=== PATIENT | male | born 1970 | race Caucasian/White ===

== ENCOUNTER 2018-02-27 10:08 | Inpatient (IN) ==
[2018-02-27] MEDS ORDERED: 0.9 % Sodium Chloride 1,000 ML IVC ONE (10:20)
--- NOTE | 2018-02-27 10:22 | Emergency Department Note ---
Disposition Clinical Impression: Biliary colic, Elevated bilirubin Disposition: Admitted As Inpatient Condition: Good Time of Disposition: 10:29 Abdominal Pain HPI - General Chief Complaint: ED Abdominal Pain Stated Complaint: needs admitted, gallbladder Time Seen by Provider: 02/27/18 10:12 Source: patient Mode of arrival: ambulatory Limitations: no limitations Nursing Notes Reviewed: Yes Vital Signs Reviewed: Yes - History of Present Illness HPI Narrative: 47 year old male presents to the ED with complaitns of glabladder, RUQ pain and was most recently seen at [facility] and admitted to medicine with surgery consult for possible common bile duct obstruction vs. biliary colic. He states that this pain has been going on for the past 6 weeks and it is worsening. He was originally evlauted with labs and admitted to medicine from [facility] and left [facility] because he could not afford the medical bills but then changed his mind and came to our facility for admission. He ia nontoxic appearing and non febrile, normal vital signs. HAs been experincing nausea nd vomittng when he eats, crampy shapr ache in the RUQ, no fevers Pain Scale: 5 - Related Data Home Medications Medication Instructions Recorded Confirmed Aspirin Enteric Coated [Aspirin EC] 81 mg PO DAILY 05/29/15 02/27/18 Metformin [Glucophage] 1,000 mg PO BIDWM 05/29/15 02/27/18 GlipiZIDE [Glipizide Xl] 5 mg PO DAILY 09/26/15 02/27/18 Lisinopril [Zestril] 10 mg PO DAILY 09/26/15 02/27/18 Pantoprazole Sodium [Protonix] 20 mg PO DAILY 09/26/15 02/27/18 Insulin Glargine,Hum.rec.anlog 40 unit SQ 02/27/18 02/27/18 [Lantus Solostar] Pravastatin Sodium [Pravachol] 40 mg PO HS 02/27/18 02/27/18 Allergies Allergy/AdvReac Type Severity Reaction Status Date / Time No Known Allergies Allergy Verified 02/27/18 10:12 Constitutional: Denies: fever, chills, weakness, weight change Eyes: Denies: eye pain, eye discharge, vision change ENT ED: Denies: ear pain, throat pain, dental pain, hearing loss, epistaxis, congestion, dysphagia Cardiovascular: Denies: chest pain, palpitations, dyspnea on exertion, edema, syncope Respiratory: Denies: cough, dyspnea, wheezes, hemoptysis, stridor Gastrointestinal: Reports: abdominal pain, nausea, vomiting. Denies: diarrhea, constipation, hematemesis, melena, hematochezia Genitourinary: Denies: urgency, dysuria, frequency, hematuria Musculoskeletal: Denies: back pain, neck pain, arthralgia, myalgia Integumentary: Denies: rash, abrasion, lesions Neurological: Denies: headache, weakness, numbness, paresthesias, confusion, abnormal gait, vertigo Psychiatric: Denies: anxiety, depression, suicidal thoughts, homicidal thoughts , auditory hallucinations, visual hallucinations Endocrine: Denies: fatigue Hematological/Lymphatic: Denies: easy bleeding, easy bruising Allergic/Immunologic: Denies: facial swelling, urticaria Abdominal Pain PMH - Past Medical History Medical history: Reports: diabetes, GERD, hyperlipidemia, hypertension, myocardial infarction Male Surgical History: Reports: cholecystectomy, vasectomy Psychiatric history: Reports: no psych history - Social History Smoking status: Current every day smoker Alcohol use: Reports: none Drug use: Reports: none Physical Exam - General Limitations: no limitations General appearance: alert, in no apparent distress - Head Head exam: atraumatic, normocephalic, normal inspection - Eye Eye exam: Present: normal appearance, PERRL, EOMI - Expanded Eye Exam Pupils: Bilateral: reactive - ENT ENT exam: normal exam, normal oropharynx, mucous membranes moist - Expanded ENT Exam External ear exam: Present: normal external inspection Mouth exam: Present: normal external inspection Teeth exam: Present: normal inspection Throat exam: Present: normal inspection - Neck Neck exam: Present: normal inspection, full ROM, trachea midline - Chest Chest inspection: Present: normal inspection, symmetric chest wall rise - Respiratory Respiratory exam: Present: normal lung sounds bilaterally - Cardiovascular Cardiovascular exam: Present: regular rate, normal rhythm, normal heart sounds - Abdominal Exam Abdominal exam: Present: soft, tenderness, normal bowel sounds, Pham's sign. Absent: Non-Tender, distention, guarding, rebound, rigidity Abdominal tenderness: Present: RUQ, moderate - Extremities Exam Extremities exam: Present: normal inspection, full ROM. Absent: tenderness, pedal edema - Expanded Upper Extremity Exam Shoulder exam: Present: normal inspection, full ROM Arm exam: Present: normal inspection, full ROM Elbow exam: Present: normal inspection, full ROM Forearm/Wrist exam: Present: normal inspection, full ROM Hand exam: Present: normal inspection, full ROM Vascular exam: Normal: capillary refill, radial pulse - Expanded Lower Extremity Exam Hip/Pelvis exam: Present: normal inspection, full ROM Upper leg exam: Present: normal inspection, full ROM Knee exam: Present: normal inspection, full ROM Lower leg exam: Present: normal inspection, full ROM Ankle exam: Present: normal inspection, full ROM Foot/toe exam: Present: normal inspection, full ROM Neurovascular/Tendon exam: Absent: motor deficit, sensory deficit, tendon deficit - Back Exam Back exam: Present: normal inspection, full ROM. Absent: tenderness - Neurological Exam Neurological exam: Present: alert, oriented X3 - Expanded Neurological Exam Patient oriented to: Present: person, place, time Coma Scale Eye Opening: Spontaneous Coma Scale Motor Response: Obeys Commands Coma Scale Verbal Response: Oriented Coma Scale Total: 15 - Psychiatric Psychiatric exam: Present: normal affect, normal mood - Skin Skin exam: Present: warm, dry, intact, normal color Course Course Narrative: I have discussed case wit surgery (Dr Desai) and Dr. Ryan (hpspitalist) and they have acepted patinet. Patinet has been updated we will obtain a lactic acid , GBUS in the interim peroid and have offered pain medication but he declines at this time Vital Signs Temperature 98.1 F 02/27/18 10:10 Pulse Rate 78 02/27/18 10:10 Respiratory Rate 18 02/27/18 10:10 Blood Pressure 170/93 02/27/18 10:10 O2 Sat by Pulse Oximetry 97 02/27/18 10:10 Temperature 98.1 F 02/27/18 10:10 Pulse Rate 78 02/27/18 10:10 Respiratory Rate 18 02/27/18 10:10 Blood Pressure 170/93 02/27/18 10:10 O2 Sat by Pulse Oximetry 97 02/27/18 10:10 Oxygen Delivery Oxygen Delivery Room Air
[2018-02-27] MEDS ORDERED: OXYCODONE Oral CONC 10 MG/0.5 ML ORAL.SYG SL PRN (11:47)
[2018-02-27] MEDS ORDERED: Naloxone 0.4 MG/ML INJ IVP PRN (11:47)
[2018-02-27] MEDS ORDERED: D5% in Water 1,000 ML IVC PRN (11:52)
[2018-02-27] MEDS ORDERED: Dextrose Gel 15 GM/37.5 ML TUBE PO PRN ×2 (11:52)
[2018-02-27] MEDS ORDERED: *HR* Dextrose 50 % in Water (Syg) 50 ML SYRINGE IVP PRN (11:52)
--- NOTE | 2018-02-27 12:18 | Internal Med History&Physical ---
Date of Encounter: 02/27/18 Time of Encounter: 11:00 Internal Medicine - H&P: HPI Chief complaint: abdominal pain History of present illness: Mr. Watson is a 47 year old male with PMHx of DM presented with 2 month history of RUQ pain. Sharp, intermittent, gradually worsening over the last couple of months. Worse with dairy products, no alleviating factors. Had similar episodes in 12/2017 for which he was seen in the ED and had CT done which showed cholelithiasis without cholecystitis. Denies fever/chills, jaundice, dysuria, change in bowel habits. No chest pain, SOB, cough, sputum production, joint pain , rash. He was initially seen in OSH ED then decided to leave AMA first to check his insurance status before being admitted. In the ED, he was hypertensive but otherwise afebrile and hemodynamically stable. Labs done at the OSH did show cholestatic pattern of LFT derangement with bilirubin of 1.7 ( was 3.3 in 12/2017). Lipase mildly elevated at 87. US RUQ again demonstrated cholelithiasis without cholecystitis. He is currently awaiting for HIDA scan per surgery. Past Med Surg Social Fam HX - Past Medical History Attestation: Yes The following information was validated with the patient. Medical history: diabetes, GERD, hyperlipidemia, hypertension, myocardial infarction Psychiatric history: no psych history - Past Surgical History Surgical History: no surgical history - Social History Smoking Status: Current every day smoker Smokeless Tobacco Status: No Alcohol use: none Drug use: none Internal Medicine - H&P: Meds Aspirin Enteric Coated [Aspirin EC] 81 mg PO DAILY 05/29/15 [History] GlipiZIDE [Glipizide Xl] 5 mg PO DAILY 09/26/15 [History] Lisinopril [Zestril] 10 mg PO DAILY 09/26/15 [History] Pantoprazole Sodium [Protonix] 20 mg PO DAILY 09/26/15 [History] Insulin Glargine,Hum.rec.anlog [Basaglar Kwikpen U-100] 40 units SQ HS 02/27/18 [History] Metformin HCl [Glucophage] 1,000 mg PO BIDWM 02/27/18 [History] Pravastatin Sodium [Pravachol] 40 mg PO HS 02/27/18 [History] 3 Allergy/AdvReac Type Severity Reaction Status Date / Time No Known Allergies Allergy Verified 02/27/18 10:58 All Systems PM: A 10-system review of systems was performed and is negative for pertinent findings except as documented above in the HPI. - Constitutional Vitals: Temp Pulse Resp BP Pulse Ox 98.1 F 78 18 170/93 97 02/27/18 10:25 02/27/18 10:25 02/27/18 10:25 02/27/18 10:25 02/27/18 10:25 Exam: General: Alert and oriented HEENT:EOM, pupils equal, round, and reactive. No jaundice Cardiovascular:Normal S1 & S2, no murmurs or gallops. No JVD. Pulse regular. Lungs:Normal breath sounds, no wheezes or crackles. Abdomen:Soft, mild RUQ tenderness without definitive Pham's sign Extremities:No deformity, no edema or tenderness, no joint swelling. Neurological:Normal cognition and motor skills. Skin:Normal color, no rash, no lesions. Pulses:Carotid and radial pulses normal +2. Rest of the physical exam is non-contributory - VTE Reasons for not Prescribing Prophylaxis: Treatment not Indicated - Low risk for VTE - Assessment and plan (1) Biliary colic Current Visit: Yes Status: Acute Assessment and plan: 2nd episode of RUQ pain within the last 3 months with evidence of cholelithiasis no signs of cholangitis initially concerned for choledocholithiasis with cholestatic pattern of LFT derangement -> it is in fact slightly better than 12/2017 and currently with minimal abdominal pain US did not show any evidence of cholecystitis HIDA scan pending, NPO till surgery evaluation D5 1/2NS while NPO trend LFT pain mx (2) Cholelithiasis Current Visit: Yes Status: Acute Assessment and plan: as above will probably need cholecystectomy in future Qualifiers: Cholelithiasis location: gallbladder Cholecystitis presence: without cholecystitis Biliary obstruction: with biliary obstruction Qualified Code(s ): K80.21 - Calculus of gallbladder without cholecystitis with obstruction (3) Elevated bilirubin Current Visit: Yes Status: Chronic Assessment and plan: slightly better than 12/2017, no evidence of cholangitis HIDA scan pending monitor LFT (4) Diabetes mellitus Current Visit: Yes Status: Acute Assessment and plan: on metformin, lantus 40U HS, and glipizide at home NPO for now will give levemir of 20U at night today and add low dose sliding scale Qualifiers: Diabetes mellitus type: type 2 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 Diabetes mellitus complication status: with unspecified complications Qualified Code(s): E11.8 - Type 2 diabetes mellitus with unspecified complications; Z79.4 - longterm (current) use of insulin (5) Hypertension Current Visit: Yes Status: Acute Assessment and plan: continue home meds Qualifiers: Hypertension type: essential hypertension Qualified Code(s): I10 - Essential (primary) hypertension (6) DVT prophylaxis Current Visit: Yes Status: Acute Assessment and plan: ambulatory - Time Spent With Patient Total time spent is greater than 50% in coordination of care (as documented) at patient's floor/unit and/or counseling patient:
[2018-02-27] MEDS: Insulin LISPRO 300 UNITS/3 ML VIAL SQ SCH ×2 (12:36→17:13)
--- NOTE | 2018-02-27 12:40 | General Surgery Consult Note ---
<Aparna Harris Alida - Last Filed: 02/27/18 14:06> Date of Encounter: 02/27/18 Time of Encounter: 11:45 Assessment and Plan (1) RUQ abdominal pain Current Visit: Yes Status: Acute He presented to [facility] for complaints of RUQ pain and was transferred to [place] for further work-up. WBC is unremarkable, noted increased hgb at 17.1, and most recent A1c was >12 in December 2017. Total bilirubin is 1.8, direct is 0.7, indirect is 1.1. Lipase 87. He had a RUQ ultrasound today which noted gallstones without evidence of acute cholecystitis. CT in december and US in December noted cholelithiasis. HIDA has been ordered and pending. Triglycerides only minimally elevated at unlikely the cause of his elevated lipase Will check A1c. Hepatitis screening given RUQ pain Further recommendations pending. May resume PRN discomfort management after HIDA scan complete chronic condition management per primary team We will continue to follow along with you (2) ASHD (arteriosclerotic heart disease) Current Visit: Yes Status: Chronic Management per primary team (3) T2DM (type 2 diabetes mellitus) Current Visit: Yes Status: Chronic Management per primary team Qualifiers: Diabetes mellitus jail insulin use: without jail use Diabetes mellitus complication status: with unspecified complications Qualified Code(s) : E11.8 - Type 2 diabetes mellitus with unspecified complications (4) HTN, goal below 130/80 Current Visit: Yes Status: Chronic Management per primary team History of Present Illness Consult date: 02/27/18 (Dr. Oracio Desai) Reason for consult: gallstones Requesting physician: Madeline Irvin History of present illness: Demarco is a 47-year-old male who reports a past medical history of uncontrolled type II diabetes, hypertension, ASHD, myocardial infarction, obesity, smoking history of 2 packs per day for greater than 20 years, and a surgical history of a vasectomy. He denies illicit drug or alcohol use. He presented to [facility] for complaints of RUQ pain. He reports RUQ pain for the last few months. He is unable to describe any aggravating factors other than occasionally milk will intensify the discomfort. He reports a constant dull ache that is sometime sharp. He denies radiation of the discomfort. He denies symptoms of worsening acid reflux, nausea, vomiting, constipation, diarrhea, black, courtney, or tarry stool. He presented in December 2017 for similar symptoms but states he was unable to follow through with any treatment due to lack of medical insurance coverage. He had a RUQ ultrasound today which noted gallstones without evidence of acute cholecystitis. His total bilirubin was elevated and his lipase was minimally elevated. He was transferred to [place] for further evaluation. Surgery has been asked to evaluate this patient for recommendations regarding gallstones found on CT and RUQ ultrasound. Past Med Surg Social Fam HX - Past Medical History Source: patient Medical history: diabetes (uncontrolled), GERD, hyperlipidemia, hypertension, myocardial infarction Psychiatric history: no psych history - Past Surgical History Surgical History: vasectomy - Social History Smoking Status: Current every day smoker Packs per day: 2 ppd for greateer than 20 years Smokeless Tobacco Status: No Alcohol use: none Drug use: none Occupational status: unemployed Current living situation: Home - Independent Activity Level: Independent ambulation Recent Out of Country Travel Within the Last 8 Weeks: No Exposure or Possible Exposure to Illness During Travel: No Medications and Allergies Aspirin Enteric Coated [Aspirin EC] 81 mg PO DAILY 05/29/15 [History] GlipiZIDE [Glipizide Xl] 5 mg PO DAILY 09/26/15 [History] Lisinopril [Zestril] 10 mg PO DAILY 09/26/15 [History] Pantoprazole Sodium [Protonix] 20 mg PO DAILY 09/26/15 [History] Insulin Glargine,Hum.rec.anlog [Basaglar Kwikpen U-100] 40 units SQ HS 02/27/18 [History] Metformin HCl [Glucophage] 1,000 mg PO BIDWM 02/27/18 [History] Pravastatin Sodium [Pravachol] 40 mg PO HS 02/27/18 [History] 3 Allergy/AdvReac Type Severity Reaction Status Date / Time No Known Allergies Allergy Verified 02/27/18 10:58 Review of Systems All systems PM: The remainder of the systems were reviewed and are negative General Surgery Exam Initial Vital Signs Temp Pulse Resp BP Pulse Ox 98.1 F 78 18 170/93 97 02/27/18 10:10 02/27/18 10:10 02/27/18 10:10 02/27/18 10:10 02/27/18 10:10 VITAL SIGNS: Reviewed. See [employer] GENERAL: In no apparent distress. Smells strongly of cigarette smoke HEENT: Normocephalic, atraumatic, pupils are equal and reactive, edentulous, oropharynx is pink and moist, there is no neck adenopathy or JVD noted. CHEST/RESPIRATORY: The thorax is free from signs of trauma. Lung sounds: decreased breath sounds, expiratory wheezing CARDIAC: Regular rate and rhythm. Normal S1 and S2, without murmurs, gallops, or rubs. VASCULAR: No Edema. 2+ peripheral pulses. ABDOMEN: soft, nontender, active bowel sounds MUSCULOSKELETAL: Good range of motion of all major joints. Extremities without clubbing, cyanosis or edema. NEUROLOGIC EXAM: Alert and oriented x 3. Speech normal. Follows commands. PSYCHIATRIC: Mood normal. SKIN: No rash or lesions. Exam Initial Vital Signs Temp Pulse Resp BP Pulse Ox 98.1 F 78 18 170/93 97 02/27/18 10:10 02/27/18 10:10 02/27/18 10:10 02/27/18 10:10 02/27/18 10:10 Results - Labs All other labs normal. - Imaging US - abdomen: report reviewed Consult Discharge Plan - Plan Referrals: Brittany Roberts, TAMPER OPERATOR [Primary Care Provider] - <Oracio Desai - Last Filed: 02/27/18 17:04> Date of Encounter: 02/27/18 Review of Systems All systems PM: The remainder of the systems were reviewed and are negative General Surgery Exam Initial Vital Signs Temp Pulse Resp BP Pulse Ox 98.1 F 78 18 170/93 97 02/27/18 10:10 02/27/18 10:10 02/27/18 10:10 02/27/18 10:10 02/27/18 10:10 Exam Initial Vital Signs Temp Pulse Resp BP Pulse Ox 98.1 F 78 18 170/93 97 02/27/18 10:10 02/27/18 10:10 02/27/18 10:10 02/27/18 10:10 02/27/18 10:10 Results - Labs Abnormal lab results Hemoglobin A1c 9.6 % (-5.6) H 02/27/18 12:12 Total Bilirubin 1.8 mg/dL (0.3-1.0) H 02/27/18 12:12 Direct Bilirubin 0.7 mg/dL (0.0-0.2) H 02/27/18 12:12 Triglycerides 157 mg/dL (< 150) H 02/27/18 12:12 Diabetes panel 02/27/18 02/27/18 Range/Units 12:12 12:12 Hemoglobin A1c 9.6 H ( - 5.6) % Triglycerides 157 H (< 150) mg/dL Adrenal panel 02/27/18 Range/Units 12:12 Total Bilirubin 1.8 H (0.3-1.0) mg/dL All other labs normal. - Attending Attestation I have personally performed a face to face evaluation on this patient. I have reviewed and agree with the care plan. History and Exam by me shows: Review the above assessment and evaluation and agree with the above plan. Patient is been having a several month history of right upper quadrant abdominal pain. Initially his symptoms also radiated to the right lower back. His pain had been intermittent in nature occurring on average once a week. The symptoms last for 3 hours and was sharp in nature. He previously was seen in the emergency room with a bilirubin level of 3.4. During this episode he had a 3 day history of persistent right upper quadrant pain radiating between the shoulder blades and to the right lower back. The pain was constant and sharp in nature. He was seen in the [facility] lab studies show elevated bilirubin of 1.7 and a mildly elevated lipase consistent with gallstone pancreatitis. He did of note had an ultrasound showing gallstones and a previous CAT scan in December of this year showing gallstones as well. HIDA scan showed no evidence of biliary obstruction. Given the laboratory studies and history I do think it is probable that his symptoms are due to gallstone pancreatitis and I think it would be appropriate to proceed with a laparoscopic cholecystectomy with cholangiogram. The case is been added on for tomorrow and the patient is aware of the risk and benefits of the procedure.
[2018-02-27 13:35] LABS: Hepatitis B Surface Antigen Nonreactive (Nonreactive)
[2018-02-27 13:53] LABS: Bilirubin,Direct 0.7 mg/dL (0.0-0.2); Bilirubin,Indirect 1.1 mg/dL (0.0-1.2); Bilirubin,Total 1.8 mg/dL (0.3-1.0)
[2018-02-27 14:18] LABS: Estimated Average Glucose 229 mg/dl; Hemoglobin A1C 9.6 %
[2018-02-27] MEDS: D5% in 0.45% NACL 1,000 ML IVC SCH (15:38)
[2018-02-27] MEDS ORDERED: Insulin DETEMIR 100 UNIT/ML X5UNITS SQ SCH (21:00)
[2018-02-27] MEDS: Ketorolac 15 MG/ML VIAL IVP PRN (21:37)
[2018-02-28] MEDS: Insulin LISPRO 300 UNITS/3 ML VIAL SQ SCH ×3 (00:39→19:19)
[2018-02-28 01:21] LABS: Hepatitis A Antibody IgM Nonreactive (Nonreactive); Hepatitis B Core IgM Nonreactive (Nonreactive); Hepatitis C Virus Antibody Nonreactive (Nonreactive)
[2018-02-28] MEDS: D5% in 0.45% NACL 1,000 ML IVC SCH (06:00)
[2018-02-28 06:27] LABS: Basophils # 0.1 K/mcL (0.0-0.2); Basophils % 0.9 %; Eosinophils # 0.2 K/mcL (0.0-0.6); Eosinophils % 1.9 %; Hematocrit 45.3 % (37.5-50.1); Hemoglobin 15.5 g/dL (12.9-16.9); Immature Granulocytes % 0.3 % (0-4); Lymphocytes # 2.2 K/mcL (0.6-4.6); Lymphocytes % 28.1 %; Mean Corpuscular HGB Conc 34.2 g/dL (31.6-35.5); Mean Corpuscular Hemoglobin 30.6 pg (28.0-33.3); Mean Corpuscular Volume 89.3 fL (83.0-100.0); Mean Platelet Volume 10.7 fL (9.4-12.4); Monocytes # 0.7 K/mcL (0.0-1.3); Monocytes % 8.6 %; Neutrophils # 4.7 K/mcL (1.6-8.9); Platelet Count 253 K/mcL (140-400); Red Blood Count 5.07 M/mcL (4.19-5.50); Red Cell Distribution Width 13.2 % (11.5-14.5); Segmented Neutrophils % 60.2 %
[2018-02-28 06:46] LABS: Alanine Aminotransferase 46 Units/L (7-52); Albumin 3.9 g/dL (3.5-5.7); Albumin/Globulin Ratio 1.4 (1.1-2.2); Alkaline Phosphatase 188 Units/L (34-104); Aspartate Amino Transferase 22 Units/L (13-39); BUN/Creatinine Ratio 13 (6-26); Bilirubin,Total 1.9 mg/dL (0.3-1.0); Blood Urea Nitrogen 7 mg/dL (6-20); Calcium 9.4 mg/dL (8.6-10.3); Carbon Dioxide 25 mEq/L (23-29); Chloride 105 mEq/L (98-107); Chol/HDL Ratio 6.9 (0-4.9); Cholesterol 172 mg/dL (< 200); Globulin 2.7 g/dL (2.4-3.5); Glucose 169 mg/dL (70-105); HDL Cholesterol 25 mg/dL (40-59); LDL Cholesterol,Calculated 114 mg/dL (0-99); Osmolality,Calculated 284 (280-300); Potassium 3.5 mEq/L (3.5-5.1); Sodium 136 mEq/L (136-145); Total Protein 6.6 g/dL (6.4-8.9); Triglycerides 163 mg/dL (< 150); eGFR For Non-African Americans > 60 (> 60)
[2018-02-28] MEDS: Ketorolac 15 MG/ML VIAL IVP PRN (08:53)
[2018-02-28] MEDS ORDERED: Nicotine 21 MG PATCH.TD24 TD SCH (09:00)
[2018-02-28] MEDS ORDERED: Aspirin Enteric Coated 81 MG Tablet PO SCH (09:00)
[2018-02-28] MEDS ORDERED: Albuterol 2.5 MG/3 ML NEBULIZER IH ONE (12:15)
[2018-02-28] MEDS ORDERED: Acetaminophen IV 1,000 MG/100 ML INFUS..BTL IVPB ONE (12:16)
[2018-02-28] MEDS ORDERED: Famotidine 20 MG/2 ML VIAL IVP ONE (12:16)
--- NOTE | 2018-02-28 12:20 | Anesthesia Evaluation PreOp ---
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 Other Medical History: Diabetes Type II Anesthesia History: No Prior Anesthetic Complications Alcohol Use: none Drug use: none Medications and Allergies Aspirin Enteric Coated [Aspirin EC] 81 mg PO DAILY 05/29/15 [History] GlipiZIDE [Glipizide Xl] 5 mg PO DAILY 09/26/15 [History] Lisinopril [Zestril] 10 mg PO DAILY 09/26/15 [History] Pantoprazole Sodium [Protonix] 20 mg PO DAILY 09/26/15 [History] Insulin Glargine,Hum.rec.anlog [Basaglar Kwikpen U-100] 40 units SQ HS 02/27/18 [History] Metformin HCl [Glucophage] 1,000 mg PO BIDWM 02/27/18 [History] Pravastatin Sodium [Pravachol] 40 mg PO HS 02/27/18 [History] 3 Allergy/AdvReac Type Severity Reaction Status Date / Time No Known Allergies Allergy Verified 02/27/18 10:58 - Meds/Allergy Pre-op Review Medications Reviewed: Yes Allergies Reviewed: Yes Beta Blockers on Current Med List: No Anesthesia Results - Labs 02/28/18 05:31 02/28/18 05:31 - Imaging EKG: report reviewed (Sinus Rhytmn) Anesthesia Exam O2 Sat Weight 107.4 kg O2 Sat by Pulse Oximetry 97 O2 Sat by Pulse Oximetry 97 O2 Sat by Pulse Oximetry 96 O2 Sat by Pulse Oximetry 97 O2 Sat by Pulse Oximetry 97 Vital Signs Temp Pulse Resp BP Pulse Ox 98.1 F 78 18 170/93 97 02/27/18 10:10 02/27/18 10:10 02/27/18 10:10 02/27/18 10:10 02/27/18 10:10 Height: 6'0 Weight: 236 lbs NPO (# of Hours): MN Pain Scale: 0 - HEENT Pupil (Motor): Pupils equal, EOMI Mallampati: III Teeth: Edentulous Oral Opening: Less than or equal to 3 - CLOUD OPERATIONS ENGINEER LOC: Oriented CLOUD OPERATIONS ENGINEER Motor: Normal RUE, Normal LUE, Normal RLE, Normal LLE, Normal Face CLOUD OPERATIONS ENGINEER Sensory: Normal: RUE, LUE, RLE, LLE, Face - Cardiac Rhythm: Regular Murmur: None JVD: No Carotid Bruit: No - Pulmonary Breath Sounds: bilateral Clear Respiratory Effort: Symmetrical Anesthesia Assess/Plan ASA Score: 3 (HTN DM Tobacco) Modified Aurora Scale for Level of Consciousness: Cooperative, oriented, and tranquil Anesthetic Plan: General Monitoring Plan: Standard Monitors Recovery Plan: PACU (Discussed GA, agrees to proceed)
[2018-02-28] MEDS ORDERED: Isovue-300 50 ML VIAL IVP ONE (12:33)
[2018-02-28] MEDS ORDERED: Bupivacaine/EPI 1:200k 0.5%PF 30 ML VIAL ONE (12:33)
[2018-02-28] MEDS ORDERED: *HR* FentaNYL (PF) 100 MCG/2 ML VIAL ONE ×3 (13:04→13:24)
[2018-02-28] MEDS ORDERED: Dexamethasone 4 MG/ML VIAL ONE ×2 (13:04→13:24)
[2018-02-28] MEDS ORDERED: Ondansetron 4 MG/2 ML VIAL ONE ×2 (13:04→13:24)
[2018-02-28] MEDS ORDERED: CefOXitin 2,000 MG VIAL ONE (13:04)
[2018-02-28] MEDS ORDERED: Lidocaine -MPF 4% 5 ML AMPUL ONE ×2 (13:04→13:24)
[2018-02-28] MEDS ORDERED: *HR* Midazolam HCl 2 MG/2 ML VIAL ONE ×2 (13:04→13:24)
[2018-02-28] MEDS ORDERED: Lidocaine -MPF 2% 2 ML VIAL ONE ×2 (13:04→13:24)
[2018-02-28] MEDS ORDERED: *HR* Propofol 200 MG/20 ML VIAL IVP ONE ×2 (13:04→13:24)
[2018-02-28] MEDS ORDERED: *HR* Promethazine 25 MG/ML VIAL IVP PRN (13:09)
[2018-02-28] MEDS ORDERED: *HR* OxyCODONE Immed Rel 5 MG TABLET PO PRN (13:09)
[2018-02-28] MEDS ORDERED: Ondansetron 4 MG/2 ML VIAL IVP ONE (13:09)
[2018-02-28] MEDS ORDERED: MORPHINE SUL Oral CONC 10 MG/0.5 ML ORAL.SYG SL PRN ×2 (13:09→14:38)
[2018-02-28] MEDS ORDERED: *HR* Labetalol 20 MG/4 ML SYRINGE IVP PRN (13:09)
[2018-02-28] MEDS ORDERED: *HR* FentaNYL (PF) 100 MCG/2 ML VIAL IVP PRN (13:09)
[2018-02-28] MEDS ORDERED: *HR* Labetalol 100 MG/20 ML MDV ONE (13:13)
[2018-02-28] MEDS ORDERED: *HR* Succinylcholine 200 MG/10 ML VIAL IVP ONE (13:24)
[2018-02-28] MEDS ORDERED: *HR* Rocuronium Bromide 50 MG/5 ML VIAL ONE (13:24)
[2018-02-28] MEDS ORDERED: Neostigmine Methylsulfate 3 MG/3 ML SYRINGE ONE (13:33)
--- NOTE | 2018-02-28 13:50 | Operative Note ---
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 After proper IV sedation was achieved followed by general endotracheal intubation, the patient's abdomen was prepped and draped in a normal sterile fashion. A timeout was performed noting the patient's name and type of procedure to be performed. Half percent Marcaine was used to infiltrate the epidermal and dermal layers just above the umbilicus. An 11 blade scalpel was then used to make an incision in this area down to the rectus fascia which was also incised. Once the abdomen was entered a 12 mm port was placed through the incision and the abdomen was insufflated with carbon dioxide. A laparoscopic camera was placed through the port which showed no injury to the intra-abdominal organs upon entry. A subxiphoid 5 mm port and a right subcostal margin 5 mm port were then placed under direct camera visualization. The patient was placed in a reverse Trendelenburg position and the gallbladder was identified and retracted superiorly. Dense omentum adhesions were noted to the dome and infundibulum which were dissected with a combination of Bovie cauterization and blunt dissection. The lymphatic tissue around the infundibulum and the location of the presumed cystic duct were enlarged consistent with inflammation. The surrounding peritoneal cover an inflamed lymphatics were dissected around the cystic duct with blunt dissection and Bovie cauterization. Once the cystic duct was further isolated the grasper was exchanged for a Moraes clamp which was used to retract the infundibulum. Laparoscopic scissors were then used to incise the cystic duct just proximal to the clip with immediate expulsion of debris and bilious fluid. A cholangiogram catheter was introduced through the side-port of the grasper and placed through this opening. It was secured with a laparoscopic clip and an intraoperative cholangiogram was then performed. There was filling of the hepatic duct with retrograde filling of the right left hepatic radicles. There was some dilation of the common bile duct distally with debris and a filling defect identified without flow into the small bowel. Multiple attempts at identifying whether or not there was flow try repositioning but no flow was evident with what appeared to be a gall stone in the distal duct. The decision was made to conclude the surgical procedure by formally removing the cholangiogram catheter, clipping the cystic duct with laparoscopic clips and incising it with laparoscopic scissors. The cystic artery was isolated, clipped, and incised laparoscopic scissors. The gallbladder was then carefully dissected away from the gallbladder fossa with Bovie cauterization while Bovie cauterization was used to maintain hemostasis. Once the gallbladder was detached was removed from the abdomen via an Endobag. Reinspection of the right upper quadrant demonstrated some mild oozing along the gallbladder fossa which was hemostatically controlled with Bovie cauterization. The right upper quadrant was copiously irrigated with normal saline solution and reinspection demonstrated proper location of the clips along the cystic duct and cystic artery. All ports are then removed from the abdomen after the abdomen was desufflated. The rectus fascia for the supraumbilical incision was reapproximated with a [id number] 0 Vicryl suture. Subcutaneous tissue was reapproximated with 3- 0 Vicryl sutures and the epidermal and dermal layers for the remaining incisions were closed with 4-0 Monocryl sutures. Needle, sponge, and instrument counts were correct 2 and the incisions were covered with Steri- Strips and Band-Aids. The patient was aroused from IV sedation, extubated in the operating room without complication, and transported to the recovery room in stable condition.
--- NOTE | 2018-02-28 13:51 | Event Note ---
Date of Encounter: 02/28/18 Time of Encounter: 13:50 Laparoscopic cholecystectomy with cholangiogram completed. Noted distal common bile duct dilation with stone and debris in the distal common bile duct with no flow of contrast into the small bowel. The cholecystectomy was completed and GI has been consulted for evaluation for possible ERCP.
--- NOTE | 2018-02-28 14:21 | Anesthesia Evaluation Post Op ---
Date of Encounter: 02/28/18 Time of Encounter: 14:25 - Vital Signs Vital Signs: Vital Signs/O2 Sat/Glucose, Most Current Temp Pulse Resp BP Pulse Ox 02/28/18 14:14 72 14 140/64 97 02/28/18 14:04 75 15 149/82 96 02/28/18 13:54 97.6 F 74 12 96/76 98 - Lungs Lungs: Clear Ascult./Percussion - Airway Airway: Non-obstructed - Cardiovascular Regular Rate - Mental Status Mental Status: Alert & Oriented, Answers Appropriately - Pain Pain Scale: 0 - Nausea Vomiting Nausea Vomiting: Not Present - Hydration Hydration: Ice chips - Discharge PostOp Status: Transfer Patient to floor
[2018-02-28] MEDS ORDERED: *HR* Dextrose 50 % in Water (Syg) 50 ML SYRINGE IVP PRN (14:38)
[2018-02-28] MEDS ORDERED: *HR* OxyCODONE/APAP 7.5/325 TABLET PO PRN (14:38)
[2018-02-28] MEDS ORDERED: Naloxone 0.4 MG/ML INJ IVP PRN (14:38)
[2018-02-28] MEDS ORDERED: D5% in Water 1,000 ML IVC PRN (14:38)
[2018-02-28] MEDS ORDERED: Dextrose Gel 15 GM/37.5 ML TUBE PO PRN ×2 (14:38)
[2018-02-28] MEDS ORDERED: Ketorolac 15 MG/ML VIAL IVP PRN (14:38)
[2018-02-28] MEDS: 0.9 % Sodium Chloride 1,000 ML IVC SCH (15:00)
--- NOTE | 2018-02-28 17:51 | Internal Med Progress Note ---
Date of Encounter: 02/28/18 Time of Encounter: 17:48 - Assessment and plan (1) Cholelithiasis Current Visit: Yes Status: Inactive Assessment and plan: Patient underwent successful cholecystectomy. However there was found to be common bile duct dilation with stone and debris and GI consultation for evaluation of possible ERCP; patient will remain nothing by mouth -Appreciate surgery recommendations and care Qualifiers: Cholelithiasis location: gallbladder Cholecystitis presence: without cholecystitis Biliary obstruction: with biliary obstruction Qualified Code(s ): K80.21 - Calculus of gallbladder without cholecystitis with obstruction (2) Biliary colic Current Visit: Yes Status: Acute Assessment and plan: Status Post cholecystectomy postoperative day #0 -Analgesia GI evaluation for choledocholithiasis pending (3) Elevated bilirubin Current Visit: Yes Status: Chronic Assessment and plan: Chronic, bilirubin stable monitor LFT (4) Diabetes mellitus Current Visit: Yes Status: Acute Assessment and plan: on metformin, lantus 40U HS, and glipizide at home NPO for now and will remain nothing by mouth Continue Lantus and sliding scale and monitor Accu-Cheks Qualifiers: Diabetes mellitus type: type 2 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: with watermelon harvesting supervisor use Diabetes mellitus complication status: with unspecified complications Qualified Code(s): E11.8 - Type 2 diabetes mellitus with unspecified complications; Z79.4 - watermelon inspector (current) use of insulin (5) Hypertension Current Visit: Yes Status: Acute Assessment and plan: Continue home meds and monitor blood pressure Qualifiers: Hypertension type: essential hypertension Qualified Code(s): I10 - Essential (primary) hypertension (6) DVT prophylaxis Current Visit: Yes Status: Acute Assessment and plan: Subcutaneous heparin - Time Spent With Patient Total time spent is greater than 50% in coordination of care (as documented) at patient's floor/unit and/or counseling patient: 25 - 35 minutes - Subjective Interval history: Patient seen and evaluated at bedside postsurgery. Patient has no complaints currently. Patient underwent laparoscopic cholecystectomy with cholangiogram and was found to have a common bile duct dilation with stone and debris; therefore general surgery was consulted for possible ERCP evaluation. Patient denies any chest pain shortness of breath, nausea, vomiting, diarrhea, admits to some mild tenderness at incision sites. - Constitutional Vitals: Temp Pulse Resp BP Pulse Ox 98.5 F 79 17 161/85 92 02/28/18 14:30 07/25/18 14:30 02/28/18 14:30 02/28/18 14:30 02/28/18 14:30 Exam: Constitutional: No acute distress, Alert Psych: AAO x 3 HEENT: NCAT, EOMI Neck: supple, no JVD Cardio: regular rate and rhythm, +s1s2, no murmurs/rubs/ronchi, no lower extremity edema, no JVD Resp: clear to ascultation bilaterally, no wheezes/rales/ronchi Abd: soft, no gaurding/reboud/ridgitity, mild tenderness to palpation at incision sites, incision sites clean dry and intact Extremities: no clubbing/cyanosis/edema appreciated Neuro: no focal deficits appreciated Lymph: no cervical/supraclavicular adenopahty apprecitated Internal Medicine: Result - Labs CBC & Chem 7: 02/28/18 05:31 02/28/18 05:31 Labs: Short CBC 02/28/18 Range/Units 05:31 WBC 7.8 (4.3-11.1) K/mcL Hgb 15.5 D (12.9-16.9) g/dL Hct 45.3 (37.5-50.1) % Plt Count 253 (140-400) K/mcL Neutrophils # 4.7 (1.6-8.9) K/mcL BMP 02/28/18 05:31 Sodium 136 Potassium 3.5 Chloride 105 Carbon Dioxide 25 BUN 7 Creatinine 0.54 L Glucose 169 H Calcium 9.4 Liver Function 02/28/18 Range/Units 05:31 Total Bilirubin 1.9 H (0.3-1.0) mg/dL AST 22 (13-39) Units/L ALT 46 (7-52) Units/L Alkaline Phosphatase 188 H (34-104) Units/L Albumin 3.9 (3.5-5.7) g/dL - Impressions Impressions Cholangiogram,Operative 02/28/18 00:00 IMPRESSION: Filling defect within the distal common bile duct with mild dilation suspicious for choledocholithiasis. No contrast noted within the duodenum. Please refer to dedicated operative note for full details. D/ / 02/28/2018 14:14:10 Clara Platt MD / eladia Interpreting Provider: Clara Platt MD - VTE Reasons for not Prescribing Prophylaxis: Treatment not Indicated - Low risk for VTE Consult Discharge Plan - Plan Referrals: Brittany Roberts CNP [Primary Care Provider] - Aparna Harris CNP [Advanced Practice Nurse] - 03/16/18 10:30 am
[2018-02-28] MEDS ORDERED: Insulin DETEMIR 100 UNIT/ML X5UNITS SQ SCH (21:00)
[2018-03-01] MEDS: Insulin LISPRO 300 UNITS/3 ML VIAL SQ SCH ×2 (00:15→05:31)
[2018-03-01] MEDS: 0.9 % Sodium Chloride 1,000 ML IVC SCH (00:28)
[2018-03-01 07:24] LABS: Basophils # 0.1 K/mcL (0.0-0.2); Basophils % 0.5 %; Eosinophils % 0.3 %; Hematocrit 46.2 % (37.5-50.1); Hemoglobin 16.2 g/dL (12.9-16.9); Immature Granulocytes % 0.4 % (0-4); Lymphocytes # 1.3 K/mcL (0.6-4.6); Lymphocytes % 13.4 %; Mean Corpuscular HGB Conc 35.1 g/dL (31.6-35.5); Mean Corpuscular Hemoglobin 30.7 pg (28.0-33.3); Mean Corpuscular Volume 87.5 fL (83.0-100.0); Mean Platelet Volume 10.6 fL (9.4-12.4); Monocytes # 0.9 K/mcL (0.0-1.3); Monocytes % 9.9 %; Neutrophils # 7.1 K/mcL (1.6-8.9); Platelet Count 243 K/mcL (140-400); Red Blood Count 5.28 M/mcL (4.19-5.50); Red Cell Distribution Width 13.2 % (11.5-14.5); Segmented Neutrophils % 75.5 %
[2018-03-01 07:34] LABS: Alanine Aminotransferase 172 Units/L (7-52); Albumin 4.1 g/dL (3.5-5.7); Albumin/Globulin Ratio 1.5 (1.1-2.2); Alkaline Phosphatase 446 Units/L (34-104); Aspartate Amino Transferase 153 Units/L (13-39); BUN/Creatinine Ratio 10 (6-26); Bilirubin,Direct 3.9 mg/dL (0.0-0.2); Bilirubin,Indirect 2.6 mg/dL (0.0-1.2); Bilirubin,Total 6.5 mg/dL (0.3-1.0); Blood Urea Nitrogen 6 mg/dL (6-20); Calcium 9.6 mg/dL (8.6-10.3); Carbon Dioxide 23 mEq/L (23-29); Chloride 102 mEq/L (98-107); Globulin 2.7 g/dL (2.4-3.5); Glucose 181 mg/dL (70-105); Osmolality,Calculated 282 (280-300); Potassium 3.4 mEq/L (3.5-5.1); Sodium 135 mEq/L (136-145); Total Protein 6.8 g/dL (6.4-8.9); eGFR For Non-African Americans > 60 (> 60)
[2018-03-01] MEDS ORDERED: Nicotine 21 MG PATCH.TD24 TD SCH (09:00)
[2018-03-01] MEDS ORDERED: Aspirin Enteric Coated 81 MG Tablet PO SCH (09:00)
--- NOTE | 2018-03-01 10:07 | Gastroenterology Consult Note ---
<Juan Carlos Blakelyjania Lopes - Last Filed: 03/01/18 10:13> Date of Encounter: 03/01/18 Time of Encounter: 09:15 - Assessment and plan (1) Choledocholithiasis Status: Acute Assessment and plan: 47 year old male who is status post lap faisal and cholangiogram showed choledocholithiasis. Bilirubin is elevated, will proceed with ERCP today for possible stenting and removal of stones. He was advised of risks and benefits including infection, bleeding, and pancreatitis, he verbalizes understanding and is in agreement. (2) Elevated bilirubin Status: Chronic - Time Spent With Patient Total time spent is greater than 50% in coordination of care (as documented) at patient's floor/unit and/or counseling patient: GI History of Present Illness - Data of Consult Patient: new to practice Consult date: 03/01/18 Requesting Physician: Chu Wills DO - Consult Narrative Reason for consult: choledocholithiasis History of present illness: Mr. Watson is a 47 year old male with PMHx of DM presented with 2 month history of RUQ pain. He is status post laproscopic cholecystectomy with cholangiogram. Noted distal common bile duct dilation with stone and debris in the distal common bile duct with no flow of contrast into the small bowel. The cholecystectomy was completed and GI has been consulted for evaluation for possible ERCP.. T bili 6.5 ast 153 alt 172 alk phos 446. He denies any pain, just complains of soreness to the surgical sites. He denies nausea or vomiting. no previous scopes no anticoagulants Past Med Surg Social Fam HX - Past Medical History Medical history: diabetes (uncontrolled), GERD, hyperlipidemia, hypertension, myocardial infarction Psychiatric history: no psych history - Past Surgical History Surgical History: vasectomy - Social History Smoking Status: Current every day smoker Packs per day: 2 ppd for greateer than 20 years Smokeless Tobacco Status: No Alcohol use: none Drug use: none Review of Systems: GI: as per [place] GENERAL: denies fever, has some chills EYES: denies yellow discoloration ENT: denies pain with swallowing or difficulty swallowing CARDIO: denies chest pain, palpitations RESP: No Shortness of breath with exertion : denies change in color of urine NEURO: denies any weakness HEME: Denies any bruising MS: denies joint pain, joint swelling or back pain. DERM: denies rash or itching PSYCH: Denies history of anxiety or depression - Constitutional Vitals: Temp Pulse Resp BP Pulse Ox 98.2 F 87 16 143/82 96 03/01/18 05:06 03/01/18 05:06 03/01/18 05:06 03/01/18 05:06 03/01/18 05:06 Exam: CONSTITUTIONAL:~alert, no acute distress.~HEAD:~normocephalic.~EYES:~no jaundice.~NECK:~no obvious swelling.~HEART:~regular rate and rhythm, no murmurs. ~LUNGS:~bilateral good air entry.~ABDOMEN:~non distended, soft, tender, no masses palpable, no organomegaly, lap incisions well approximated no drainage or redness noted.~RECTAL EXAM:~Deferred.~EXTREMITIES:~no clubbing, cyanosis or edema.~SKIN:~no stigmata of chronic liver disease.~NEUROLOGIC:~no obvious focal defect.~~~~ Results - Labs CBC & Chem 7: 03/01/18 06:54 03/01/18 06:54 Labs: Last Result Calcium 9.6 mg/dL (8.6-10.3) 03/01/18 06:54 Triglycerides 163 mg/dL (< 150) H 02/28/18 05:31 Entire Visit Hgb 16.2 g/dL (12.9-16.9) 03/01/18 06:54 Hct 46.2 % (37.5-50.1) 03/01/18 06:54 Total Bilirubin 6.5 mg/dL (0.3-1.0) H 03/01/18 06:54 AST 153 Units/L (13-39) H 03/01/18 06:54 ALT 172 Units/L (7-52) H 03/01/18 06:54 - Impressions Impressions Cholangiogram,Operative 02/28/18 00:00 IMPRESSION: Filling defect within the distal common bile duct with mild dilation suspicious for choledocholithiasis. No contrast noted within the duodenum. Please refer to dedicated operative note for full details. D/ / 02/28/2018 14:14:10 Clara Platt MD / eladia Interpreting Provider: Clara Platt MD Consult Discharge Plan - Plan Instructions: Laparoscopic Cholecystectomy (DC) Additional Instructions: General Surgical Discharge Instructions 1. No pushing, pulling, or lifting greater than 15 lbs for 2 weeks (depending upon procedure). 2. You may shower beginning today, but no tub baths, soaking, or swimming for 2 weeks. 3. You may resume driving when you are off narcotics and are safe to react in a car. 4. Take ibuprofen every 8 hours for discomfort. If this does not relieve discomfort, you may take the as needed Percocet. Take narcotics as directed. Do not take more narcotics then directed and do not share your narcotics with any other person. Do not drink alcohol while on narcotics. 5. Take stool softeners (Colace) or a water based laxative (Miralax) while taking narcotics. You may hold for loose stools. 6. Report any fevers greater than 100.5F, increase abdominal discomfort, drainage that looks like pus, increased redness or pain at the surgical site, or any vomiting. 7. Report any pain in the calves, shortness of breath, or rapid heartbeat. 8. Follow-up in the office as directed. 9. If you were prescribed antibiotics, do not stop them without talking to your provider. Referrals: Brittany Roberts CNP [Primary Care Provider] - Aparna Harris CNP [Advanced Practice Nurse] - 03/16/18 10:30 am Prescriptions: OxyCODONE/APAP 5/325 [Percocet 5/325 MG] 1 each PO Q6HR PRN 7 Days #28 tablet PRN Reason: Pain Ibuprofen 800 mg PO Q8H #30 tablet Polyethylene Glycol 3350 [MiraLAX Powder Bulk 17.9 Oz] 1 scoop PO DAILY #510 gm <Ulices Sosa - Last Filed: 03/05/18 17:26> Date of Encounter: 03/01/18 Time of Encounter: 15:00 - Time Spent With Patient Total time spent is greater than 50% in coordination of care (as documented) at patient's floor/unit and/or counseling patient: GI History of Present Illness - Data of Consult Requesting Physician: Chu Wills DO - Consult Narrative History of present illness: Mr. Watson is a 47 year old male - Constitutional Vitals: Temp Pulse Resp BP Pulse Ox 99.8 F H 90 16 172/93 92 03/01/18 16:55 03/01/18 16:55 03/01/18 16:55 03/01/18 16:55 03/01/18 16:55 Results - Labs CBC & Chem 7: 03/01/18 06:54 03/01/18 06:54 Labs: Last Result Calcium 9.6 mg/dL (8.6-10.3) 03/01/18 06:54 Triglycerides 163 mg/dL (< 150) H 02/28/18 05:31 Entire Visit Hgb 16.2 g/dL (12.9-16.9) 03/01/18 06:54 Hct 46.2 % (37.5-50.1) 03/01/18 06:54 Total Bilirubin 6.5 mg/dL (0.3-1.0) H 03/01/18 06:54 AST 153 Units/L (13-39) H 03/01/18 06:54 ALT 172 Units/L (7-52) H 03/01/18 06:54 - Attending Attestation I have personally performed a face to face evaluation on this patient. I have reviewed and agree with the care plan. History and Exam by me shows: Patient seen does has some mild discomfort on recent gallbladder surgery. Does has very elevated bilirubin of more than 6 because of obstructive jaundice due to a CBD stone that was seen on cholangiogram. Recommendation: Patient to have an ERCP with sphincterotomy and CBD stone extraction. Procedure including risks such as pancreatitis perforation etc. discussed with the patient
--- NOTE | 2018-03-01 12:24 | General Surgery Progress Note ---
Date of Encounter: 03/01/18 Time of Encounter: 12:24 - Assessment and Plan (1) RUQ abdominal pain Current Visit: Yes Status: Acute Date of procedure: 02/28/18 Pre-op diagnosis: Gallstone pancreatitis Post-op diagnosis: same Procedure: Laproscopic cholecystectomy with intraoperative cholangiogram POD#1 lap faisal as above. Noted no flow into the small bowel with what appeared to be a gallstone in the distal common bile duct. GI was consulted and patient will likely undergo an ERCP today. Noted bilirubin increased from 1.9 to 6.5 and direct bilirubin from 0.7 to 3.9, LFTs are elevated as well. Continue supportive care and discomfort management Repeat am labs Ambulate TID Out of bed to chair for all meals D/C planning per GI reccs and primary care (see d/c surgical instructions) May resume diet after ERCP per GI reccs No indication for ATBX at d/c from a surgical standpoint (2) Choledocholithiasis Current Visit: Yes Status: Acute See a/p above (3) ASHD (arteriosclerotic heart disease) Current Visit: Yes Status: Chronic Management per primary team (4) T2DM (type 2 diabetes mellitus) Current Visit: Yes Status: Chronic Management per primary team Qualifiers: Diabetes mellitus fdc insulin use: without engineering lab technician use Diabetes mellitus complication status: with unspecified complications Qualified Code(s) : E11.8 - Type 2 diabetes mellitus with unspecified complications (5) HTN, goal below 130/80 Current Visit: Yes Status: Chronic Management per primary team Subjective Patient reports: still having pain, voiding w/o difficulty, no flatus, no bowel movement, afebrile Objective Vital Signs - Last 8 Hours Temp Pulse Resp BP Pulse Ox 03/01/18 10:20 98.3 F 86 16 152/84 96 03/01/18 05:06 98.2 F 87 16 143/82 96 Intake and Output 02/28/18 03/01/18 03/01/18 23:59 07:59 15:59 Intake Total 200 / 200 1000 / 1000 0 / 0 Output Total 1400 / 1400 800 / 800 400 / 400 Balance -1200 / -1200 200 / 200 -400 / -400 Intake: IV Fluids 1000 / 1000 0.9 % Sodium Chloride 1,000 ML 1000 / 1000 @ 80 mls/hr IVC .[id number] Rx #:[id number] Oral 200 / 200 0 / 0 0 / 0 Output: Urine 1400 / 1400 800 / 800 400 / 400 Other: Meal NPO NPO Percent of Meal Consumed 0% 0% # Bowel Movements 0 0 Weight 106.9 kg Blood Glucose* 216 152 157 Patient Weight 03/01/18 23:59 Weight 106.9 kg - General physical appearance no distress, moderate pain, jaundice - ENT poor penitentiary, atraumatic, normocephalic - Neck Neck exam: trachea midline - Respiratory normal expansion, normal respiratory effort, clear to auscultation - Cardiovascular Cardiovascular exam: Present: RRR - Abdomen Abdomen: Present: soft, tender. Absent: bowel sounds present Abdominal Tenderness: RUQ Hernia: none - Incision Incision: Present: clean and dry, intact - Neurologic normal sensation - Musculoskeletal other (Guarding posture) - Psychiatric oriented to time, oriented to person, oriented to place, memory intact - Labs 03/01/18 06:54 03/01/18 06:54 Diabetes panel 03/01/18 Range/Units 06:54 Sodium 135 L (136-145) mEq/L Potassium 3.4 L (3.5-5.1) mEq/L Chloride 102 (98-107) mEq/L Carbon Dioxide 23 (23-29) mEq/L BUN 6 (6-20) mg/dL Creatinine 0.59 L (0.70-1.30) mg/dL Glucose 181 H (70-105) mg/dL Calcium 9.6 (8.6-10.3) mg/dL AST 153 H (13-39) Units/L ALT 172 H (7-52) Units/L Alkaline Phosphatase 446 H (34-104) Units/L Albumin 4.1 (3.5-5.7) g/dL Calcium panel 03/01/18 Range/Units 06:54 Calcium 9.6 (8.6-10.3) mg/dL Albumin 4.1 (3.5-5.7) g/dL Pituitary panel 03/01/18 Range/Units 06:54 Sodium 135 L (136-145) mEq/L Potassium 3.4 L (3.5-5.1) mEq/L Chloride 102 (98-107) mEq/L Carbon Dioxide 23 (23-29) mEq/L BUN 6 (6-20) mg/dL Creatinine 0.59 L (0.70-1.30) mg/dL Glucose 181 H (70-105) mg/dL Calcium 9.6 (8.6-10.3) mg/dL Adrenal panel 03/01/18 Range/Units 06:54 Sodium 135 L (136-145) mEq/L Potassium 3.4 L (3.5-5.1) mEq/L Chloride 102 (98-107) mEq/L Carbon Dioxide 23 (23-29) mEq/L BUN 6 (6-20) mg/dL Creatinine 0.59 L (0.70-1.30) mg/dL Glucose 181 H (70-105) mg/dL Calcium 9.6 (8.6-10.3) mg/dL Total Bilirubin 6.5 H (0.3-1.0) mg/dL AST 153 H (13-39) Units/L ALT 172 H (7-52) Units/L Alkaline Phosphatase 446 H (34-104) Units/L Albumin 4.1 (3.5-5.7) g/dL - VTE Reasons for not Prescribing Prophylaxis: Treatment not Indicated - Low risk for VTE Consult Discharge Plan - Plan Instructions: Laparoscopic Cholecystectomy (DC) Additional Instructions: General Surgical Discharge Instructions 1. No pushing, pulling, or lifting greater than 15 lbs for 2 weeks (depending upon procedure). 2. You may shower beginning today, but no tub baths, soaking, or swimming for 2 weeks. 3. You may resume driving when you are off narcotics and are safe to react in a car. 4. Take ibuprofen every 8 hours for discomfort. If this does not relieve discomfort, you may take the as needed Percocet. Take narcotics as directed. Do not take more narcotics then directed and do not share your narcotics with any other person. Do not drink alcohol while on narcotics. 5. Take stool softeners (Colace) or a water based laxative (Miralax) while taking narcotics. You may hold for loose stools. 6. Report any fevers greater than 100.5F, increase abdominal discomfort, drainage that looks like pus, increased redness or pain at the surgical site, or any vomiting. 7. Report any pain in the calves, shortness of breath, or rapid heartbeat. 8. Follow-up in the office as directed. 9. If you were prescribed antibiotics, do not stop them without talking to your provider. Referrals: Brittany Roberts CNP [Primary Care Provider] - Aparna Harris CNP [Advanced Practice Nurse] - 03/16/18 10:30 am Prescriptions: OxyCODONE/APAP 5/325 [Percocet 5/325 MG] 1 each PO Q6HR PRN 7 Days #28 tablet PRN Reason: Pain Ibuprofen 800 mg PO Q8H #30 tablet Polyethylene Glycol 3350 [MiraLAX Powder Bulk 17.9 Oz] 1 scoop PO DAILY #510 gm
[2018-03-01] MEDS ORDERED: *HR* Midazolam HCl 2 MG/2 ML VIAL ONE (14:34)
[2018-03-01] MEDS ORDERED: Lidocaine -MPF 2% 2 ML VIAL ONE (14:34)
[2018-03-01] MEDS ORDERED: *HR* FentaNYL (PF) 100 MCG/2 ML VIAL ONE (14:34)
[2018-03-01] MEDS ORDERED: *HR* Succinylcholine 200 MG/10 ML VIAL IVP ONE (14:34)
[2018-03-01] MEDS ORDERED: Lidocaine -MPF 4% 5 ML AMPUL ONE (14:34)
[2018-03-01] MEDS ORDERED: Dexamethasone 4 MG/ML VIAL ONE (14:34)
[2018-03-01] MEDS ORDERED: *HR* Propofol 200 MG/20 ML VIAL IVP ONE (14:34)
[2018-03-01] MEDS ORDERED: Ondansetron 4 MG/2 ML VIAL ONE (14:34)
--- NOTE | 2018-03-01 14:41 | Internal Med Progress Note ---
Date of Encounter: 03/01/18 Time of Encounter: 14:37 - Assessment and plan (1) Cholelithiasis Current Visit: Yes Status: Inactive Assessment and plan: Patient underwent successful cholecystectomy postoperative day #1 However there was found to be common bile duct dilation with stone and debris GI consultation noted and patient is scheduled for ERCP today -Appreciate surgery and gastroenterology recommendations and care Qualifiers: Cholelithiasis location: gallbladder Cholecystitis presence: without cholecystitis Biliary obstruction: with biliary obstruction Qualified Code(s ): K80.21 - Calculus of gallbladder without cholecystitis with obstruction (2) Biliary colic Current Visit: Yes Status: Acute Assessment and plan: Status Post cholecystectomy postoperative day #1 -Analgesia -Patient undergo ERCP today for choledocholithiasis -Patient with significant increase in transaminases and bilirubin today; Tbili is 6.5 from 1.9 -We will check hepatic panel and lipase in a.m. (3) Elevated bilirubin Current Visit: Yes Status: Chronic Assessment and plan: -Patient undergo ERCP today for choledocholithiasis -Patient with significant increase in transaminases and bilirubin today; Tbili is 6.5 from 1.9 -We will check hepatic panel and lipase in a.m. (4) Diabetes mellitus Current Visit: Yes Status: Acute Assessment and plan: on metformin, lantus 40U HS, and glipizide at home NPO for now and will remain nothing by mouth Continue Lantus and sliding scale and monitor Accu-Cheks Qualifiers: Diabetes mellitus type: type 2 Diabetes mellitus terminal supervisor insulin use: with terminal supervisor use Diabetes mellitus complication status: with unspecified complications Qualified Code(s): E11.8 - Type 2 diabetes mellitus with unspecified complications; Z79.4 - longterm (current) use of insulin (5) Hypertension Current Visit: Yes Status: Acute Assessment and plan: Continue home meds and monitor blood pressure Qualifiers: Hypertension type: essential hypertension Qualified Code(s): I10 - Essential (primary) hypertension (6) DVT prophylaxis Current Visit: Yes Status: Acute Assessment and plan: Subcutaneous heparin - Time Spent With Patient Total time spent is greater than 50% in coordination of care (as documented) at patient's floor/unit and/or counseling patient: 25 - 35 minutes - Subjective Interval history: Patient seen and examined at bedside. Patient states that he is doing well and had no overnight events. Patient denies any chest pain, shortness of breath, nausea, vomiting, diarrhea, fevers. Patient admits to mild intermittent right upper quadrant pain at the surgical sites was improved from yesterday. Patient to undergo ERCP today. - Constitutional Vitals: Temp Pulse Resp BP Pulse Ox 98.3 F 82 18 163/91 92 03/01/18 10:20 03/01/18 14:08 03/01/18 14:08 03/01/18 14:08 03/01/18 14:08 Exam: Constitutional: No acute distress, Alert Psych: AAO x 3 HEENT: NCAT, EOMI sclera anicteric Neck: supple, no JVD Cardio: regular rate and rhythm, +s1s2, no murmurs/rubs/ronchi, no lower extremity edema, no JVD Resp: clear to ascultation bilaterally, no wheezes/rales/ronchi Abd: soft, non tender/non distended, surgical sites are clean dry and intact Extremities: no clubbing/cyanosis/edema appreciated Neuro: no focal deficits appreciated Lymph: no cervical/supraclavicular adenopahty apprecitated Internal Medicine: Result - Labs CBC & Chem 7: 03/01/18 06:54 03/01/18 06:54 Labs: Short CBC 03/01/18 Range/Units 06:54 WBC 9.4 (4.3-11.1) K/mcL Hgb 16.2 (12.9-16.9) g/dL Hct 46.2 (37.5-50.1) % Plt Count 243 (140-400) K/mcL Neutrophils # 7.1 (1.6-8.9) K/mcL BMP 03/01/18 06:54 Sodium 135 L Potassium 3.4 L Chloride 102 Carbon Dioxide 23 BUN 6 Creatinine 0.59 L Glucose 181 H Calcium 9.6 Liver Function 03/01/18 Range/Units 06:54 Total Bilirubin 6.5 H (0.3-1.0) mg/dL Direct Bilirubin 3.9 H (0.0-0.2) mg/dL AST 153 H (13-39) Units/L ALT 172 H (7-52) Units/L Alkaline Phosphatase 446 H (34-104) Units/L Albumin 4.1 (3.5-5.7) g/dL - VTE Reasons for not Prescribing Prophylaxis: Treatment not Indicated - Low risk for VTE Consult Discharge Plan - Plan Instructions: Laparoscopic Cholecystectomy (DC) Additional Instructions: General Surgical Discharge Instructions 1. No pushing, pulling, or lifting greater than 15 lbs for 2 weeks (depending upon procedure). 2. You may shower beginning today, but no tub baths, soaking, or swimming for 2 weeks. 3. You may resume driving when you are off narcotics and are safe to react in a car. 4. Take ibuprofen every 8 hours for discomfort. If this does not relieve discomfort, you may take the as needed Percocet. Take narcotics as directed. Do not take more narcotics then directed and do not share your narcotics with any other person. Do not drink alcohol while on narcotics. 5. Take stool softeners (Colace) or a water based laxative (Miralax) while taking narcotics. You may hold for loose stools. 6. Report any fevers greater than 100.5F, increase abdominal discomfort, drainage that looks like pus, increased redness or pain at the surgical site, or any vomiting. 7. Report any pain in the calves, shortness of breath, or rapid heartbeat. 8. Follow-up in the office as directed. 9. If you were prescribed antibiotics, do not stop them without talking to your provider. Referrals: Brittany Roberts CNP [Primary Care Provider] - Aparna Harris CNP [Advanced Practice Nurse] - 03/16/18 10:30 am Prescriptions: OxyCODONE/APAP 5/325 [Percocet 5/325 MG] 1 each PO Q6HR PRN 7 Days #28 tablet PRN Reason: Pain Ibuprofen 800 mg PO Q8H #30 tablet Polyethylene Glycol 3350 [MiraLAX Powder Bulk 17.9 Oz] 1 scoop PO DAILY #510 gm
[2018-03-01] MEDS ORDERED: Indomethacin 50 MG SUPP.RECT RC ONE (14:54)
[2018-03-01] MEDS ORDERED: *HR* Promethazine 25 MG/ML VIAL IVP PRN (15:31)
[2018-03-01] MEDS ORDERED: *HR* OxyCODONE Immed Rel 5 MG TABLET PO PRN (15:31)
[2018-03-01] MEDS: *HR* Labetalol 20 MG/4 ML SYRINGE IVP PRN ×3 (15:50→16:00)
--- NOTE | 2018-03-01 15:58 | Procedure Note ---
Date of procedure: 03/01/18 Pre-op diagnosis: CBD stones Procedure: ERCP: ERCP done , many stones removed. NO stent placed. Rec: Can be d/c home if no abd pain Was there an title i assistant present: No Estimated blood loss (cc): 0 IV fluids (cc): 0 Urine output (cc): 0 Specimen: none
[2018-03-01] MEDS ORDERED: cloNIDine HCl 0.1 MG TABLET PO ONE (16:12)
[2018-03-01 16:58] VITALS: BP 172/93
--- NOTE | 2018-03-01 17:00 | Anesthesia Evaluation Post Op ---
Date of Encounter: 03/01/18 Time of Encounter: 17:02 - Vital Signs Vital Signs: Vital Signs - Last 8 Hours Temp Pulse Resp BP Pulse Ox 03/01/18 16:55 99.8 F H 90 16 172/93 92 03/01/18 16:46 86 16 172/91 93 03/01/18 16:36 86 16 178/101 94 03/01/18 16:26 99.7 F H 82 16 178/98 94 03/01/18 16:16 83 16 181/97 95 03/01/18 16:06 84 16 181/97 94 03/01/18 15:56 99.2 F 83 16 172/101 94 03/01/18 15:46 93 16 169/98 94 03/01/18 15:36 75 16 145/90 98 03/01/18 15:26 98.7 F 84 16 134/79 99 03/01/18 14:08 82 18 163/91 92 03/01/18 10:20 98.3 F 86 16 152/84 96 Intake and Output 03/01/18 03/01/18 03/01/18 07:59 15:59 23:59 Intake Total 1000 / 1000 0 / 0 Output Total 800 / 800 400 / 400 Balance 200 / 200 -400 / -400 Intake: IV Fluids 1000 / 1000 0.9 % Sodium Chloride 1,000 ML 1000 / 1000 @ 80 mls/hr IVC .[id number] [facility] Rx #:[id number] Oral 0 / 0 0 / 0 Output: Urine 800 / 800 400 / 400 Other: Meal NPO Percent of Meal Consumed 0% # Bowel Movements 0 0 Weight 106.9 kg Blood Glucose* 152 122 Patient Weight 03/01/18 23:59 Weight 106.9 kg - Lungs Lungs: Clear Ascult./Percussion - Airway Airway: Non-obstructed - Cardiovascular Regular Rate, Baseline Rhythm - Mental Status Mental Status: Alert & Oriented, Answers Appropriately - Pain Pain Scale: 0 Pain Scale used: Numeric (1 - 10) - Nausea Vomiting Nausea Vomiting: Not Present - Hydration Hydration: Ice chips, Has not voided - Discharge PostOp Status: Transfer Patient to floor
--- NOTE | 2018-03-01 17:57 | Discharge Summary ---
- NOTES TO OUTPATIENT PROVIDER Notes to Outpatient Provider: Patient is status post cholecystectomy and ERCP with stone removal but no stent placement; patient has a laboratory order to have hepatic panel and lipase checked tomorrow (friday 03/02) and have results sent to primary care office. Please follow up on this. Patient is instructed to return to ER if jaundiced or having abdominal pain. Orders not resulted at time of discharge: Pending orders 02/28/18 13:10 Surgical Pathology [PTH] Routine Date of Encounter: 03/01/18 Time of Encounter: 17:53 - Discharge Diagnosis (1) Acute gallstone pancreatitis Priority: Primary Status: Acute (2) Cholelithiasis Priority: Secondary Status: Inactive Qualifiers: Cholelithiasis location: gallbladder Cholecystitis presence: without cholecystitis Biliary obstruction: with biliary obstruction Qualified Code(s ): K80.21 - Calculus of gallbladder without cholecystitis with obstruction (3) Biliary colic Priority: Secondary Status: Acute (4) Elevated bilirubin Priority: Secondary Status: Chronic (5) Diabetes mellitus Priority: Secondary Status: Acute Qualifiers: Diabetes mellitus type: type 2 Diabetes mellitus terminal worker insulin use: with care home use Diabetes mellitus complication status: with unspecified complications Qualified Code(s): E11.8 - Type 2 diabetes mellitus with unspecified complications; Z79.4 - assisted (current) use of insulin (6) Hypertension Priority: Secondary Status: Acute Qualifiers: Hypertension type: essential hypertension Qualified Code(s): I10 - Essential (primary) hypertension (7) DVT prophylaxis Priority: Secondary Status: Acute Hospital course: Mr. Watson is a 47 year old male who presented [facility] with complaint of abdominal pain. She was found to have cholecystitis and taken for cholecystectomy this was done laparoscopically with intraoperative cholangiogram. Surgery revealed stones in the common bile duct which was dilated. GI saw the patient continued to the patient for ERCP. ERCP revealed many stones which were removed and no stent was placed. The patient had elevation of his transaminases and bilirubin prior to ERCP. This will likely return to normal rapidly over the patient has a an order for a hepatic panel and lipase to be drawn tomorrow and sent to his primary care physician's office. GI stated patient to be discharged home if no abdominal pain post ERCP. The patient is eating food without any pain and eager to go home. The patient is aware to return to the ER if he develops jaundice or abdominal pain. The patient states he will see his primary care physician within the next week and have his blood work done tomorrow. Discharge discussed with: patient, family, nurse - Time Spent with Patient Total time spent providing and/or coordinating discharge services: Greater than 30 minutes - Discharge Medications Prescriptions: OxyCODONE/APAP 5/325 [Percocet 5/325 MG] 1 each PO Q6HR PRN 7 Days #28 tablet PRN Reason: Pain Ibuprofen 800 mg PO Q8H #30 tablet Polyethylene Glycol 3350 [MiraLAX Powder Bulk 17.9 Oz] 1 scoop PO DAILY #510 gm Home Medications: Aspirin Enteric Coated [Aspirin EC] 81 mg PO DAILY 05/29/15 [History] GlipiZIDE [Glipizide Xl] 5 mg PO DAILY 09/26/15 [History] Lisinopril [Zestril] 10 mg PO DAILY 09/26/15 [History] Pantoprazole Sodium [Protonix] 20 mg PO DAILY 09/26/15 [History] Insulin Glargine,Hum.rec.anlog [Basaglar Kwikpen U-100] 40 units SQ HS 02/27/18 [History] Metformin HCl [Glucophage] 1,000 mg PO BIDWM 02/27/18 [History] Ibuprofen 800 mg PO Q8H #30 tablet 03/01/18 [Rx] OxyCODONE/APAP 5/325 [Percocet 5/325 MG] 1 each PO Q6HR PRN 7 Days #28 tablet [Rx] Polyethylene Glycol 3350 [MiraLAX Powder Bulk 17.9 Oz] 1 scoop PO DAILY #510 gm 03/01/18 [Rx] Allergies/Adverse Reactions: 3 Allergy/AdvReac Type Severity Reaction Status Date / Time No Known Allergies Allergy Verified 02/27/18 10:58 Date of admission: 02/27/18 10:56 Primary care physician: Birttany Roberts CNP Consults: 02/28/18 14:38 Consult to Gastroenterology [CONS] Stat Consulting Provider: [facility] [employer] Reason for Consult: S/p laparoscopic CCY with Cholangiogram. Distal CBD stone identified Time Notified: 13:57 Call Completed: Yes - Constitutional Vitals: Temp Pulse Resp BP Pulse Ox 99.8 F H 90 16 172/93 92 03/01/18 16:55 03/01/18 16:55 03/01/18 16:55 03/01/18 16:55 03/01/18 16:55 Exam: Constitutional: No acute distress, Alert Psych: AAO x 3 HEENT: NCAT, EOMI sclera anicteric Neck: supple, no JVD Cardio: regular rate and rhythm, +s1s2, no murmurs/rubs/ronchi, no lower extremity edema, no JVD Resp: clear to ascultation bilaterally, no wheezes/rales/ronchi Abd: soft, non tender/non distended, surgical sites are clean dry and intact Extremities: no clubbing/cyanosis/edema appreciated Neuro: no focal deficits appreciated Lymph: no cervical/supraclavicular adenopahty apprecitated - Patient Status Disposition: Home, Self-Care Condition: Good Functional capacity at discharge: independent ambulation Overall status at discharge: patient is back to baseline - Discharge Instructions Instructions: Laparoscopic Cholecystectomy (DC) Follow Up With: Brittany Roberts CNP [Primary Care Provider] - Aparna Harris CNP [Advanced Practice Nurse] - 03/16/18 10:30 am Additional Instructions: General Surgical Discharge Instructions 1. No pushing, pulling, or lifting greater than 15 lbs for 2 weeks (depending upon procedure). 2. You may shower beginning today, but no tub baths, soaking, or swimming for 2 weeks. 3. You may resume driving when you are off narcotics and are safe to react in a car. 4. Take ibuprofen every 8 hours for discomfort. If this does not relieve discomfort, you may take the as needed Percocet. Take narcotics as directed. Do not take more narcotics then directed and do not share your narcotics with any other person. Do not drink alcohol while on narcotics. 5. Take stool softeners (Colace) or a water based laxative (Miralax) while taking narcotics. You may hold for loose stools. 6. Report any fevers greater than 100.5F, increase abdominal discomfort, drainage that looks like pus, increased redness or pain at the surgical site, or any vomiting. 7. Report any pain in the calves, shortness of breath, or rapid heartbeat. 8. Follow-up in the office as directed. 9. If you were prescribed antibiotics, do not stop them without talking to your provider. - Diet and Activity Activity: increase activity as tolerated Diet: advance to your usual diet - VTE Reasons for not Prescribing Prophylaxis: Treatment not Indicated - Low risk for VTE
[2018-03-01] MEDS ORDERED: *HR* Heparin 5,000 UNIT/ML VIAL SQ SCH (18:00)
== END 2018-03-01 19:06 | disposition home or self-care (01) | DRG 263 ==
LOC: EMEROO 10:08 → 3ANU 10:08 → SUATTDRO 10:56 → OBSVTOIN 10:56 → 3ANU 11:34
PROVIDERS: ADMIT Internal Medicine; ATTEND Internal Medicine

== ENCOUNTER 2018-03-26 10:53 | Observation (INO) ==
[2018-03-26] MEDS ORDERED: Piperacillin/Tazobactam 3.375 GM in 0.9 % Sodium Chloride Mini Bag 100 ML IVPB ONE (10:58)
[2018-03-26] MEDS ORDERED: Ketorolac 15 MG/ML VIAL IVP PRN ×2 (11:09→19:20)
[2018-03-26] MEDS ORDERED: OXYCODONE Oral CONC 10 MG/0.5 ML ORAL.SYG SL PRN (11:09)
[2018-03-26] MEDS ORDERED: *HR* Promethazine 25 MG/ML VIAL IVP PRN (11:09)
[2018-03-26] MEDS ORDERED: Ondansetron 4 MG/2 ML VIAL IVP PRN (11:09)
[2018-03-26] MEDS ORDERED: Naloxone 0.4 MG/ML INJ IVP PRN (11:09)
--- NOTE | 2018-03-26 11:10 | Emergency Department Note ---
Disposition Clinical Impression: Post op infection Qualifiers: Encounter type: initial encounter Qualified Code(s): T81.4XXA - Infection following a procedure, initial encounter Abdominal pain Qualifiers: Abdominal location: right upper quadrant Qualified Code(s): R10.11 - Right upper quadrant pain Disposition: Admitted As Inpatient Condition: Undetermined Forms: ED Satisfaction Letter, Work/School Release Time of Disposition: 11:45 Abdominal Pain HPI - General Chief Complaint: ED Abdominal Pain Stated Complaint: needs admitted Time Seen by Provider: 03/26/18 10:56 Source: patient Mode of arrival: private vehicle Limitations: no limitations Nursing Notes Reviewed: Yes Vital Signs Reviewed: Yes - History of Present Illness HPI Narrative: 47-year-old male as a AMA from [facility] for an abscess in the gallbladder fossa. The patient had a cholecystectomy roughly 3 weeks ago. The patient started complaining of right upper quadrant and right-sided abdominal pain that is nonradiating that started one day ago. The patient has associated nausea without vomiting. The patient is been expressing diarrhea is relatively nonstop according to patient's history for 3 weeks. The patient denies any other complaints at this time clinically fevers. He does feel very weak. Patient denies any other complaints. The patient was noted to have a direct admit from [facility]. The hospitalist, Dr. Moran, refused admission at that time. Dr. Desai in general surgery requested admission to the hospitalist. Upon arrival to the emergency department surgery was consulted immediately. Currently the hospitalist continues to refuse the patient as an admission from [facility] emergency department , currently awaiting nurse practitioner from general surgery to see patient prior to admission at 1110. Pain Scale: 5 - Related Data Home Medications Medication Instructions Recorded Confirmed GlipiZIDE [Glipizide Xl] 5 mg PO DAILY 09/26/15 03/26/18 Pantoprazole Sodium [Protonix] 20 mg PO DAILY 09/26/15 03/26/18 Metformin HCl [Glucophage] 1,000 mg PO BIDWM 02/27/18 03/26/18 Aspirin [Adult Aspirin Regimen] 81 mg PO DAILY 03/26/18 03/26/18 Pravastatin Sodium [Pravachol] 40 mg PO DAILY 03/26/18 03/26/18 Allergies Allergy/AdvReac Type Severity Reaction Status Date / Time No Known Allergies Allergy Verified 03/26/18 06:02 All systems ED: reviewed and negative except as stated. Constitutional: Reports: chills, weakness. Denies: fever ENT ED: Denies: dysphagia Cardiovascular: Denies: chest pain Respiratory: Denies: dyspnea Gastrointestinal: Reports: abdominal pain, nausea, diarrhea. Denies: vomiting, constipation, hematemesis, melena, hematochezia Genitourinary: Denies: urgency, dysuria Musculoskeletal: Denies: back pain Integumentary: Denies: rash Neurological: Denies: headache Abdominal Pain PMH - Past Medical History Medical history: Reports: diabetes, GERD, hyperlipidemia, hypertension, myocardial infarction Male Surgical History: Reports: cholecystectomy, vasectomy Psychiatric history: Reports: no psych history - Social History Smoking status: Current every day smoker Alcohol use: Reports: none Drug use: Reports: none Physical Exam - General Limitations: no limitations General appearance: alert, in no apparent distress - Head Head exam: atraumatic, normocephalic, normal inspection - Eye Eye exam: Present: normal appearance, PERRL, EOMI - ENT ENT exam: normal exam, normal oropharynx, mucous membranes moist - Neck Neck exam: Present: normal inspection, full ROM, trachea midline - Chest Chest inspection: Present: normal inspection, symmetric chest wall rise - Respiratory Respiratory exam: Present: normal lung sounds bilaterally - Cardiovascular Cardiovascular exam: Present: normal rhythm, tachycardia, normal heart sounds - Abdominal Exam Abdominal exam: Present: soft, tenderness (RUQ), distention, incision (intact), hernia (umbilical). Absent: guarding, rebound, rigidity - Extremities Exam Extremities exam: Present: full ROM, other (Chronic venous stasis). Absent: tenderness - Neurological Exam Neurological exam: Present: alert, oriented X3 - Skin Skin exam: Present: warm, dry, intact, normal color Course Vital Signs Temperature 99.8 F H 03/26/18 10:56 Pulse Rate 105 03/26/18 10:56 Respiratory Rate 16 03/26/18 10:56 Blood Pressure 134/79 03/26/18 10:56 O2 Sat by Pulse Oximetry 97 03/26/18 10:56 Temperature 99.8 F H 03/26/18 11:01 Pulse Rate 105 03/26/18 11:01 Respiratory Rate 16 03/26/18 11:01 Blood Pressure 134/79 03/26/18 11:01 O2 Sat by Pulse Oximetry 97 03/26/18 11:01 Oxygen Delivery Oxygen Delivery Room Air Abdominal Pain - MDM Narrative Medical decision making narrative: 1142: Patient case discussed with Surgery occupational health coordinator, Dr. Desai. He accepted patient for admission. ANNALISE from Surgery at bedside. Patient agrees to plan of care. - Medical Records Medical records reviewed: Yes I reviewed the patient's medical records.
[2018-03-26] MEDS ORDERED: 0.9 % Sodium Chloride 1,000 ML IVC ONE (11:11)
--- NOTE | 2018-03-26 11:18 | General Surg History&Physical ---
Date of Encounter: 03/26/18 Time of Encounter: 11:15 Assessment and Plan (1) Post op infection Current Visit: Yes Status: Acute The assessment and plan as outlined above was discussed with the patient and/or family members who expressed understanding and agreement. All questions were answered. Consult to IR for drain placement Cultures per IR NPO supportive care and discomfort management Scheduled ofirmev PRN toradol and narcotic for breakthrough pain MIV G.I. and DVT prophylaxis further recommendations pending Continue Zosyn Lactic acid pending Qualifiers: Encounter type: initial encounter Qualified Code(s): T81.4XXA - Infection following a procedure, initial encounter (2) Diabetes mellitus Current Visit: Yes Status: Chronic The assessment and plan as outlined above was discussed with the patient and/or family members who expressed understanding and agreement. All questions were answered. NPO for procedure Resume home meds when indicated Qualifiers: Diabetes mellitus type: type 2 Diabetes mellitus mcfp insulin use: without manager intermediate use Diabetes mellitus complication status: with unspecified complications Qualified Code(s): E11.8 - Type 2 diabetes mellitus with unspecified complications (3) RUQ abdominal pain Current Visit: Yes Status: Acute See above. (4) ASHD (arteriosclerotic heart disease) Current Visit: No Status: Chronic The assessment and plan as outlined above was discussed with the patient and/or family members who expressed understanding and agreement. All questions were answered. Continue home meds when indicated (5) HTN, goal below 130/80 Current Visit: No Status: Chronic The assessment and plan as outlined above was discussed with the patient and/or family members who expressed understanding and agreement. All questions were answered. Continue home meds when indicated PRN hydralazine and metoprolol (6) Electrolyte imbalance Current Visit: Yes Status: Acute The assessment and plan as outlined above was discussed with the patient and/or family members who expressed understanding and agreement. All questions were answered. Replete lytes as indicated History of Present Illness Chief complaint: RUQ pain HPI: Mr. Watson is a 47 year old male was status post laparoscopic cholecystectomy on 02/28/[address] Desai, complicated by no flow into the small bowel with what appeared to be a gallstone in the distal common bile duct. He underwent an ERCP on 03/01/2018 in which many stones were removed and stent was placed. He was discharged home later that same day. 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 He presented to [place] emergency department on 03/26/2018 with complaints of right upper quadrant pain for the last [address] of the abdomen and pelvis was completed which noted a 7 x 12 fluid collection in the gallbladder fossa with associated gas collection consistent with likely abscess. He was recommended transfer to [facility] per ambulance but patient declined to write in the ambulance and drove himself here. He denies fevers at home although he is febrile in the emergency department, chills, nausea, vomiting, constipation, diarrhea, changes in bowel habits, black , bloody, or tarry stool. He denies skin changes. He endorses right upper quadrant pain that has been constant and worsening for the last 24 hours. There are no aggravating or associated factors. Past Med Surg Social Fam HX - Past Medical History Source: patient Medical history: diabetes, GERD, hyperlipidemia, hypertension, myocardial infarction Psychiatric history: no psych history - Past Surgical History Surgical History: cholecystectomy, vasectomy - Social History Smoking Status: Current every day smoker Smokeless Tobacco Status: No Alcohol use: none Drug use: none Occupational status: employed Current living situation: Home - Independent Activity Level: Independent ambulation Recent Out of Country Travel Within the Last 8 Weeks: No Exposure or Possible Exposure to Illness During Travel: No Medications and Allergies GlipiZIDE [Glipizide Xl] 5 mg PO DAILY 09/26/15 [History] Pantoprazole Sodium [Protonix] 20 mg PO DAILY 09/26/15 [History] Metformin HCl [Glucophage] 1,000 mg PO BIDWM 02/27/18 [History] Aspirin [Adult Aspirin Regimen] 81 mg PO DAILY 03/26/18 [History] Pravastatin Sodium [Pravachol] 40 mg PO DAILY 03/26/18 [History] 3 Allergy/AdvReac Type Severity Reaction Status Date / Time No Known Allergies Allergy Verified 03/26/18 06:02 Review of Systems All systems PM: reviewed and no additional remarkable complaints except as stated All systems PM: The remainder of the systems were reviewed and are negative General Surgery Exam Initial Vital Signs Temp Pulse Resp BP Pulse Ox 99.8 F H 105 16 134/79 97 03/26/18 10:56 03/26/18 10:56 03/26/18 10:56 03/26/18 10:56 03/26/18 10:56 VITAL SIGNS: Reviewed. See [facility] GENERAL: In no apparent distress. HEENT: Normocephalic, atraumatic, pupils are equal and reactive, extraocular motions intact, oropharynx is pink and moist, there is no neck adenopathy or JVD noted. He is edentulous. CHEST/RESPIRATORY: The thorax is free from signs of trauma. Lung sounds: clear to auscultation, normal respiratory effort CARDIAC: Regular rate and rhythm. Normal S1 and S2, without murmurs, gallops, or rubs. VASCULAR: No Edema. 2+ peripheral pulses. ABDOMEN: soft, right upper quadrant tenderness, active bowel sounds. MUSCULOSKELETAL: Good range of motion of all major joints. Extremities without clubbing, cyanosis or edema. NEUROLOGIC EXAM: Alert and oriented x 3. Speech normal. Follows commands. PSYCHIATRIC: Mood normal. SKIN: No rash or lesions. Multiple tattoos noted. Results - Labs Laboratory Tests 03/26/18 11:18 Lactic Acid 1.1 BMP 03/26/2018 0620 reviewed and noted hypokalemia, normal LFTs. - Imaging CT scan - abdomen: report reviewed CT scan - pelvis: report reviewed
[2018-03-26] MEDS ORDERED: *HR* Metoprolol 5 MG/5 ML VIAL IVP PRN (11:20)
--- NOTE | 2018-03-26 11:57 | Emergency Department Note ---
Disposition Clinical Impression: Post op infection Qualifiers: Encounter type: initial encounter Qualified Code(s): T81.4XXA - Infection following a procedure, initial encounter Abdominal pain Qualifiers: Abdominal location: right upper quadrant Qualified Code(s): R10.11 - Right upper quadrant pain Disposition: Admitted As Inpatient Condition: Undetermined General Adult HPI - General Chief complaint: ED Abdominal Pain Stated complaint: needs admitted Time Seen by Provider: 03/26/18 10:56 Source: patient Mode of arrival: private vehicle Limitations: no limitations - History of Present Illness Pain Scale: 5 - Related Data Home Medications Medication Instructions Recorded Confirmed GlipiZIDE [Glipizide Xl] 5 mg PO DAILY 09/26/15 03/26/18 Pantoprazole Sodium [Protonix] 20 mg PO DAILY 09/26/15 03/26/18 Metformin HCl [Glucophage] 1,000 mg PO BIDWM 02/27/18 03/26/18 Aspirin [Adult Aspirin Regimen] 81 mg PO DAILY 03/26/18 03/26/18 Pravastatin Sodium [Pravachol] 40 mg PO DAILY 03/26/18 03/26/18 Allergies Allergy/AdvReac Type Severity Reaction Status Date / Time No Known Allergies Allergy Verified 03/26/18 06:02 Constitutional: Reports: chills, weakness. Denies: fever ENT ED: Denies: dysphagia Cardiovascular: Denies: chest pain Respiratory: Denies: dyspnea Gastrointestinal: Reports: abdominal pain, nausea, diarrhea. Denies: vomiting, constipation, hematemesis, melena, hematochezia Genitourinary: Denies: urgency, dysuria Musculoskeletal: Denies: back pain Integumentary: Denies: rash Neurological: Denies: headache Past Medical History - Past Medical History Medical history: Reports: diabetes, GERD, hyperlipidemia, hypertension, myocardial infarction Surgical history: Reports: vasectomy Psychiatric history: Reports: no psych history - Social History Smoking Status: Current every day smoker Smokeless Tobacco Status: No Alcohol use: Reports: none Drug use: Reports: none Physical Exam - General Limitations: no limitations General appearance: alert, in no apparent distress Course Vital Signs Temperature 99.8 F H 03/26/18 10:56 Pulse Rate 105 03/26/18 10:56 Respiratory Rate 16 03/26/18 10:56 Blood Pressure 134/79 03/26/18 10:56 O2 Sat by Pulse Oximetry 97 03/26/18 10:56 Temperature 99.8 F H 03/26/18 11:01 Pulse Rate 105 03/26/18 11:01 Respiratory Rate 16 03/26/18 11:01 Blood Pressure 134/79 03/26/18 11:01 O2 Sat by Pulse Oximetry 97 03/26/18 11:01 Oxygen Delivery Oxygen Delivery Room Air Medical Decision Making - Lab Data Lab Results 03/26/18 Range/Units 11:18 Lactic Acid 1.1 (0.5-2.2) mmol/L Attestation Statement - Attestation Attestation: I examined this patient and my medical decision-making was reviewed with the Resident Physician. I agree with the documented findings, disposition and treatment plan as described except to the extent set forth below. 47 year old male presents to the ED with complaints of abdominal pain and is s/ p cholecystectomy per Dr. Desai. He was seen at an outside facility [place] and it appears that there is a post-surgical abscess present with WBC of 11.7. He has been accepted to the srugical service and patient is non- toxic appearing and otherwise stable vitals.
[2018-03-26] MEDS ORDERED: Dextrose Gel 15 GM/37.5 ML TUBE PO PRN ×2 (12:38)
[2018-03-26] MEDS ORDERED: D5% in Water 1,000 ML IVC PRN ×2 (12:38→15:47)
[2018-03-26] MEDS ORDERED: *HR* Dextrose 50 % in Water (Syg) 50 ML SYRINGE IVP PRN (12:38)
[2018-03-26] MEDS: Pantoprazole 40 MG VIAL IVP SCH (13:57)
[2018-03-26] MEDS: 0.9 % Sodium Chloride 1,000 ML IVC SCH ×2 (13:58→19:55)
[2018-03-26] MEDS: Acetaminophen IV 1,000 MG/100 ML INFUS..BTL IVPB SCH ×2 (14:04→18:45)
[2018-03-26] MEDS ORDERED: *HR* FentaNYL (PF) 100 MCG/2 ML VIAL IVP ONE (14:48)
[2018-03-26] MEDS ORDERED: *HR* Midazolam HCl 2 MG/2 ML VIAL IVP ONE (14:48)
--- NOTE | 2018-03-26 14:49 | Pre-Sedation Evaluation ---
Pre-sedation evaluation - Pre-sedation checklist Date of procedure: 03/26/18 Procedure: abcess drain Recent Vitals: Last Vital Signs Temp 100.3 F H 03/26/18 13:30 Pulse 97 03/26/18 13:30 Resp 16 03/26/18 13:30 BP 157/92 03/26/18 13:30 Pulse Ox 94 03/26/18 13:30 H&P (including ROS) documented in medical record: Yes Previous reaction to sedatives/anesthetics: Yes; explain in comment Dietary Status: NPO after Midnight Airway Assessment: Patient can open mouth completely, TMJ function normal, Micrognathia (under-bite, receding chin) absent, Neck with adequate range of motion Dentition: poor dentition ASA Classification *see protocol: CLASS II-Mild systemic disease Plan of Care: Pt appropriate candidate for procedure/moderate/conscious sedation , Risks/benefits of procedure/sedation discussed w/ patient/family, If not NPO; Risk of intake outweiged by necessity to perform procedure Cardiac Registry (Cardio Only) - Functional Capacity - Clincal Frailty Scale
[2018-03-26] MEDS ORDERED: 0.9 % Sodium Chloride 500 ML ONE (14:53)
--- NOTE | 2018-03-26 15:21 | IR Procedure Note ---
Date of procedure: 03/26/18 Consent Obtained: Verbal consent, Written consent Timeout: Correct patient and procedure verified, Correct site verified, Time out performed, Skin prep completed Local anesthetic: Lidocaine 1% Indications: GB fossa abscess Procedure Performed: 10F percutaneous drain placement Was there an language assistant present: No Site/Technique: RUQ Estimated blood loss (cc): 1 Complications: None; Tolerated procedure well Post Procedure Treatment Plan: Please flush drain with 10 cc saline q shift. Specimen: 170 cc pus aspirated
[2018-03-26] MEDS: Ipratropium/Albuterol Neb 3 ML IH SCH ×3 (16:21→22:38)
[2018-03-26] MEDS: Insulin LISPRO 300 UNITS/3 ML VIAL SQ SCH ×2 (16:50→19:58)
[2018-03-26] MEDS ORDERED: Insulin LISPRO 300 UNITS/3 ML VIAL SQ SCH (18:00)
[2018-03-26 19:42] LABS: Basophils % 0.3 %; Eosinophils % 0.3 %; Hematocrit 40.3 % (37.5-50.1); Hemoglobin 14.1 g/dL (12.9-16.9); Immature Granulocytes % 0.3 % (0-4); Lymphocytes # 0.3 K/mcL (0.6-4.6); Lymphocytes % 3.9 %; Mean Corpuscular Hemoglobin 29.6 pg (28.0-33.3); Mean Corpuscular Volume 84.7 fL (83.0-100.0); Mean Platelet Volume 10.3 fL (9.4-12.4); Monocytes % 0.3 %; Neutrophils # 6.3 K/mcL (1.6-8.9); Platelet Count 277 K/mcL (140-400); Red Blood Count 4.76 M/mcL (4.19-5.50); Segmented Neutrophils % 94.9 %
[2018-03-26] MEDS: Piperacillin/Tazobactam 3.375 GM in 0.9 % Sodium Chloride Mini Bag 100 ML IVPB SCH (19:43)
[2018-03-26 20:10] LABS: Alanine Aminotransferase 18 Units/L (7-52); Albumin 3.2 g/dL (3.5-5.7); Albumin/Globulin Ratio 1.1 (1.1-2.2); Alkaline Phosphatase 202 Units/L (34-104); Aspartate Amino Transferase 14 Units/L (13-39); BUN/Creatinine Ratio 10 (6-26); Bilirubin,Total 1.6 mg/dL (0.3-1.0); Blood Urea Nitrogen 6 mg/dL (6-20); Calcium 8.8 mg/dL (8.6-10.3); Carbon Dioxide 26 mEq/L (23-29); Chloride 104 mEq/L (98-107); Glucose 104 mg/dL (70-105); Osmolality,Calculated 284 (280-300); Potassium 2.6 mEq/L (3.5-5.1); Sodium 138 mEq/L (136-145); Total Protein 6.2 g/dL (6.4-8.9); eGFR For Non-African Americans > 60 (> 60)
[2018-03-26] MEDS ORDERED: Potassium Chloride Elixir 20 MEQ/15 ML UDC PO ONE (20:45)
[2018-03-27] MEDS ORDERED: Piperacillin/Tazobactam 3.375 GM in 0.9 % Sodium Chloride Mini Bag 100 ML IVPB SCH
[2018-03-27 00:37] LABS: Basophils % 0.2 %; Hematocrit 38.3 % (37.5-50.1); Hemoglobin 13.2 g/dL (12.9-16.9); Immature Granulocytes % 0.6 % (0-4); Lymphocytes # 0.6 K/mcL (0.6-4.6); Lymphocytes % 3.2 %; Mean Corpuscular HGB Conc 34.5 g/dL (31.6-35.5); Mean Corpuscular Hemoglobin 29.6 pg (28.0-33.3); Mean Corpuscular Volume 85.9 fL (83.0-100.0); Mean Platelet Volume 10.5 fL (9.4-12.4); Monocytes % 2.5 %; Neutrophils # 16.6 K/mcL (1.6-8.9); Platelet Count 268 K/mcL (140-400); Red Blood Count 4.46 M/mcL (4.19-5.50); Red Cell Distribution Width 13.1 % (11.5-14.5); Segmented Neutrophils % 93.5 %
[2018-03-27 00:38] LABS: Monocytes # 0.4 K/mcL (0.0-1.3)
[2018-03-27] MEDS: Acetaminophen IV 1,000 MG/100 ML INFUS..BTL IVPB SCH ×2 (00:44→06:18)
[2018-03-27] MEDS: 0.9 % Sodium Chloride 1,000 ML IVC SCH (00:44)
[2018-03-27 01:00] LABS: Alanine Aminotransferase 18 Units/L (7-52); Albumin/Globulin Ratio 1.1 (1.1-2.2); Alkaline Phosphatase 174 Units/L (34-104); Amylase 17 Units/L (29-103); Aspartate Amino Transferase 19 Units/L (13-39); BUN/Creatinine Ratio 8 (6-26); Bilirubin,Direct 0.7 mg/dL (0.0-0.2); Bilirubin,Indirect 0.6 mg/dL (0.0-1.2); Bilirubin,Total 1.3 mg/dL (0.3-1.0); Blood Urea Nitrogen 7 mg/dL (6-20); Calcium 8.5 mg/dL (8.6-10.3); Carbon Dioxide 24 mEq/L (23-29); Chloride 103 mEq/L (98-107); Globulin 2.7 g/dL (2.4-3.5); Glucose 199 mg/dL (70-105); Lipase 9 Units/L (11-82); Magnesium 0.6 mg/dL (1.6-2.6); Osmolality,Calculated 286 (280-300); Potassium 3.1 mEq/L (3.5-5.1); Sodium 136 mEq/L (136-145); Total Protein 5.7 g/dL (6.4-8.9); eGFR For Non-African Americans > 60 (> 60)
[2018-03-27] MEDS: Piperacillin/Tazobactam 3.375 GM in 0.9 % Sodium Chloride Mini Bag 100 ML IVPB SCH ×3 (04:30→20:41)
[2018-03-27] MEDS ORDERED: Potassium Phosphate 44 MEQ in 0.9 % Sodium Chloride 250 ML IVPB ONE (05:43)
--- NOTE | 2018-03-27 10:30 | General Surgery Progress Note ---
<Bindu Butterfield E - Last Filed: 03/27/18 10:42> Date of Encounter: 03/27/18 Time of Encounter: 09:25 - Assessment and Plan (1) Electrolyte imbalance Status: Acute continue to follow lytes (2) Post op infection Status: Acute Regular diet Blood cultures pending Supportive care and discomfort management Scheduled ofiramev PRN torodol and narcotic for breakthrough pain GI and DVT prophylaxis Continue zosyn Qualifiers: Encounter type: initial encounter Qualified Code(s): T81.4XXA - Infection following a procedure, initial encounter (3) RUQ abdominal pain Status: Acute see above (4) Diabetes mellitus Status: Chronic Resume home medications Qualifiers: Diabetes mellitus type: type 2 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 Diabetes mellitus complication status: with unspecified complications Qualified Code(s): E11.8 - Type 2 diabetes mellitus with unspecified complications (5) Hypertension Status: Acute continue home medications PRN hydralazine and motoprolol Qualifiers: Hypertension type: essential hypertension Qualified Code(s): I10 - Essential (primary) hypertension (6) ASHD (arteriosclerotic heart disease) Status: Chronic continue home medications Subjective Patient reports: feels better, pain is less, no flatus, no bowel movement, other (He states that he is feeling better, tolerating liquids and would like some "real food". ) Objective Vital Signs - Last 8 Hours Temp Pulse Resp BP Pulse Ox 03/27/18 07:57 97 03/27/18 06:42 98.0 F 83 16 104/72 97 03/27/18 03:00 97.7 F 95 20 115/72 98 Intake and Output 03/26/18 03/27/18 03/27/18 23:59 07:59 15:59 Intake Total 1200 / 1200 300 / 300 240 / 240 Output Total 660 / 660 445 / 445 Balance 540 / 540 -145 / -145 240 / 240 Intake: IV Fluids 1200 / 1200 300 / 300 0.9 % Sodium Chloride 1,000 ML 1000 / 1000 @ 125 mls/hr IVC .Q8H RAMONITA Rx#: [id number] Ofirmev 1,000 mg/100 ml 1,000 200 / 200 200 / 200 mg In 100 ml @ 400 mls/hr IVPB Q6HR RAMONITA Rx#:[id number] Zosyn 3.375 GM In 0.9 % Sodium 100 / 100 Chloride (Mini-Bag +) 100 ML @ 25 mls/hr IVPB Q8H RAMONITA Rx#: [id number] Oral 0 / 0 240 / 240 Output: Urine 400 / 400 400 / 400 Wound Drainage 260 / 260 45 / 45 Right Abdomen 260 / 260 45 / 45 Other: Meal Breakfast Percent of Meal Consumed 0% # Bowel Movements 0 Weight 129.8 kg Blood Glucose* 182 188 Patient Weight 03/27/18 23:59 Weight 129.8 kg - General physical appearance well developed, well nourished, no distress - Respiratory normal expansion, normal respiratory effort, clear to auscultation - Cardiovascular Cardiovascular exam: Present: RRR, no murmurs/rubs/gallops - Abdomen Abdomen: Present: bowel sounds present, soft, non tender Additional Comments: SELMA drain serosanguinous - Incision Incision: Present: clean and dry, intact - Integumentary no rash, no growths, no abnormal pigmentation - Musculoskeletal normal posture - Psychiatric oriented to time, oriented to person, oriented to place - Labs 03/27/18 00:07 03/27/18 00:07 Diabetes panel 03/26/18 03/27/18 03/27/18 Range/Units 19:28 00:07 00:07 Sodium 138 136 (136-145) mEq/L Potassium 2.6 L 3.1 L 3.1 L (3.5-5.1) mEq/L Chloride 104 103 (98-107) mEq/L Carbon Dioxide 26 24 (23-29) mEq/L BUN 6 7 (6-20) mg/dL Creatinine 0.60 L 0.85 (0.70-1.30) mg/dL Glucose 104 199 H (70-105) mg/dL Calcium 8.8 8.5 L (8.6-10.3) mg/dL AST 14 19 (13-39) Units/L ALT 18 18 (7-52) Units/L Alkaline Phosphatase 202 H 174 H (34-104) Units/L Albumin 3.2 L 3.0 L (3.5-5.7) g/dL Calcium panel 03/26/18 03/27/18 03/27/18 Range/Units 19:28 00:07 04:54 Calcium 8.8 8.5 L (8.6-10.3) mg/dL Phosphorus 1.0 L* 2.6 L (2.7-4.5) mg/dL Albumin 3.2 L 3.0 L (3.5-5.7) g/dL Pituitary panel 03/26/18 03/27/18 03/27/18 Range/Units 19:28 00:07 00:07 Sodium 138 136 (136-145) mEq/L Potassium 2.6 L 3.1 L 3.1 L (3.5-5.1) mEq/L Chloride 104 103 (98-107) mEq/L Carbon Dioxide 26 24 (23-29) mEq/L BUN 6 7 (6-20) mg/dL Creatinine 0.60 L 0.85 (0.70-1.30) mg/dL Glucose 104 199 H (70-105) mg/dL Calcium 8.8 8.5 L (8.6-10.3) mg/dL Adrenal panel 03/26/18 03/27/18 03/27/18 Range/Units 19: 00:07 00:07 Sodium 138 136 (136-145) mEq/L Potassium 2.6 L 3.1 L 3.1 L (3.5-5.1) mEq/L Chloride 104 103 (98-107) mEq/L Carbon Dioxide 26 24 (23-29) mEq/L BUN 6 7 (6-20) mg/dL Creatinine 0.60 L 0.85 (0.70-1.30) mg/dL Glucose 104 199 H (70-105) mg/dL Calcium 8.8 8.5 L (8.6-10.3) mg/dL Total Bilirubin 1.6 H 1.3 H (0.3-1.0) mg/dL AST 14 19 (13-39) Units/L ALT 18 18 (7-52) Units/L Alkaline Phosphatase 202 H 174 H (34-104) Units/L Albumin 3.2 L 3.0 L (3.5-5.7) g/dL - VTE Documentation of Mechanical Device: Intermittent pneumatic compression device Consult Discharge Plan - Plan Instructions: Diabetes Mellitus Type 2 in Adults (DC) Additional Instructions: 1. No pushing, pulling, or lifting greater than 15 lbs for 2-4 weeks (depending upon procedure). 2. You may shower beginning today, but no tub baths, soaking, or swimming for 2 weeks. 3. You may resume driving when you are off narcotics and are safe to react in a car. 4. Take ibuprofen every 8 hours for discomfort. If this does not relieve discomfort, you may take the as needed Percocet. Take narcotics as directed. Do not take more narcotics then directed and do not share your narcotics with any other person. Do not drink alcohol while on narcotics. 5. Take stool softeners (Colace) or a water based laxative (Miralax) while taking narcotics. You may hold for loose stools. 6. Report any fevers greater than 100.5F, increase abdominal discomfort, drainage that looks like pus, increased redness or pain at the surgical site, or any vomiting. 7. Report any pain in the calves, shortness of breath, or rapid heartbeat. 8. Follow-up in the office as directed. 9. If you were prescribed antibiotics, do not stop them without talking to your provider. 10. Do not let SELMA drain dangle from body, secure to clothing with safety pin. Empty and measure fluid 2-3 times a day and keep a log of the measurements. Referrals: Brittany Roberts, ASSISTIVE TECHNOLOGY TRAINER [Primary Care Provider] - Prescriptions: OxyCODONE/APAP 5/325 [Percocet 5/325 MG] 1 each PO Q8HR PRN 5 Days #15 tablet PRN Reason: Pain Amoxicillin/Clavulanate [Augmentin] 875 mg PO BIDWM #28 tablet <Oracio Desai - Last Filed: 03/29/18 16:01> Date of Encounter: 03/27/18 Objective - Labs 03/28/18 06:18 03/27/18 00:07 - Attending Attestation Review the above assessment and evaluation and agree with the above plan. Of note patient has severe protein calorie malnutrition. Being followed by nutrition.
[2018-03-27] MEDS: Insulin LISPRO 300 UNITS/3 ML VIAL SQ SCH ×4 (10:58→22:37)
[2018-03-27] MEDS: Pantoprazole 40 MG VIAL IVP SCH (11:06)
[2018-03-27] MEDS ORDERED: *HR* OxyCODONE/APAP 7.5/325 TABLET PO PRN (11:37)
[2018-03-27 13:14] LABS: Acinetobacter baumannii by PCR Not Detected (Not Detect); Candida albicans by PCR Not Detected (Not Detect); Candida glabrata by PCR Not Detected (Not Detect); Candida krusei by PCR Not Detected (Not Detect); Candida parapsilosis by PCR Not Detected (Not Detect); Candida tropicalis by PCR Not Detected (Not Detect); Enterobacter cloacae Cmplx PCR Not Detected (Not Detect); Enterococcus by PCR Not Detected (Not Detect); Klebsiella oxytoca by PCR Not Detected (Not Detect); Klebsiella pneumoniae by PCR Not Detected (Not Detect); Proteus by PCR Not Detected (Not Detect); Pseudomonas aeruginosa by PCR Not Detected (Not Detect); Serratia marcescens by PCR Not Detected (Not Detect); Staphylococcus aureus by PCR Not Detected (Not Detect); Staphylococcus by PCR Not Detected (Not Detect); Streptococcus agalactiae(B)PCR Not Detected (Not Detect); Streptococcus by PCR Not Detected (Not Detect); Streptococcus pneumoniae PCR Not Detected (Not Detect); Streptococcus pyogenes (A) PCR Not Detected (Not Detect); blaKPC Carbapenem-Resist Gene Not Detected (Not Detect); mecA Methicillin-Resist Gene Not Detected (Not Detect); vanA/B Vancomycin-Resist Genes Not Detected (Not Detect)
[2018-03-27 13:15] LABS: Enterobacteriaceae by PCR DETECTED (Not Detect); Escherichia coli by PCR DETECTED (Not Detect)
[2018-03-27] MEDS: *HR* Metformin 500 MG TABLET PO SCH (16:16)
[2018-03-28] MEDS: Piperacillin/Tazobactam 3.375 GM in 0.9 % Sodium Chloride Mini Bag 100 ML IVPB SCH (03:59)
[2018-03-28 06:38] LABS: Basophils # 0.1 K/mcL (0.0-0.2); Basophils % 0.4 %; Eosinophils # 0.3 K/mcL (0.0-0.6); Eosinophils % 1.5 %; Hematocrit 38.2 % (37.5-50.1); Hemoglobin 13.1 g/dL (12.9-16.9); Immature Granulocytes % 0.6 % (0-4); Lymphocytes # 2.3 K/mcL (0.6-4.6); Lymphocytes % 13.7 %; Mean Corpuscular HGB Conc 34.3 g/dL (31.6-35.5); Mean Corpuscular Hemoglobin 29.6 pg (28.0-33.3); Mean Corpuscular Volume 86.4 fL (83.0-100.0); Mean Platelet Volume 10.5 fL (9.4-12.4); Monocytes # 0.8 K/mcL (0.0-1.3); Monocytes % 4.5 %; Neutrophils # 13.5 K/mcL (1.6-8.9); Platelet Count 270 K/mcL (140-400); Red Blood Count 4.42 M/mcL (4.19-5.50); Red Cell Distribution Width 13.2 % (11.5-14.5); Segmented Neutrophils % 79.3 %
[2018-03-28 06:49] LABS: Albumin 3.2 g/dL (3.5-5.7); Bilirubin,Direct 0.3 mg/dL (0.0-0.2); Bilirubin,Indirect 0.7 mg/dL (0.0-1.2); Globulin 3.3 g/dL (2.4-3.5); Total Protein 6.5 g/dL (6.4-8.9)
[2018-03-28] MEDS: Insulin LISPRO 300 UNITS/3 ML VIAL SQ SCH (08:39)
[2018-03-28] MEDS: *HR* Metformin 500 MG TABLET PO SCH (08:39)
[2018-03-28 08:47] VITALS: BP 152/88
[2018-03-28] MEDS ORDERED: *HR* GlipiZIDE XL (24 HR) 2.5 MG TABLET PO SCH (09:00)
[2018-03-28] MEDS ORDERED: Aspirin 81 MG TAB.CHEW PO SCH (09:00)
--- NOTE | 2018-03-28 10:43 | Discharge Summary ---
Orders not resulted at time of discharge: Pending orders 03/26/18 CT guided asp with tube [CT] Routine 03/26/18 19:28 Culture,Blood [BC] Stat 03/28/18 15:46 Accucheck [POC Glucometer Test] [POC] [facility] 03/29/18 15:46 Accucheck [POC Glucometer Test] [POC] [facility] 03/30/18 15:46 Accucheck [POC Glucometer Test] [POC] [facility] 03/31/18 15:46 Accucheck [POC Glucometer Test] [POC] [facility] 04/01/18 15:46 Accucheck [POC Glucometer Test] [POC] [facility] 04/02/18 15:46 Accucheck [POC Glucometer Test] [POC] [facility] 04/03/18 15:46 Accucheck [POC Glucometer Test] [POC] [facility] 04/04/18 15:46 Accucheck [POC Glucometer Test] [POC] [facility] 04/05/18 15:46 Accucheck [POC Glucometer Test] [POC] [facility] 04/06/18 15:46 Accucheck [POC Glucometer Test] [POC] [facility] 04/07/18 15:46 Accucheck [POC Glucometer Test] [POC] [facility] 04/08/18 15:46 Accucheck [POC Glucometer Test] [POC] [facility] 04/09/18 15:46 Accucheck [POC Glucometer Test] [POC] [facility] 04/10/18 15:46 Accucheck [POC Glucometer Test] [POC] [facility] 04/11/18 15:46 Accucheck [POC Glucometer Test] [POC] [facility] 04/12/18 15:46 Accucheck [POC Glucometer Test] [POC] [facility] 04/13/18 15:46 Accucheck [POC Glucometer Test] [POC] [facility] 04/14/18 15:46 Accucheck [POC Glucometer Test] [POC] [facility] 04/15/18 15:46 Accucheck [POC Glucometer Test] [POC] [facility] 04/16/18 15:46 Accucheck [POC Glucometer Test] [POC] [facility] 04/17/18 15:46 Accucheck [POC Glucometer Test] [POC] [facility] 04/18/18 15:46 Accucheck [POC Glucometer Test] [POC] [facility] 04/19/18 15:46 Accucheck [POC Glucometer Test] [POC] [facility] 04/20/18 15:46 Accucheck [POC Glucometer Test] [POC] [facility] 04/21/18 15:46 Accucheck [POC Glucometer Test] [POC] [facility] 04/22/18 15:46 Accucheck [POC Glucometer Test] [POC] [facility] 04/23/18 15:46 Accucheck [POC Glucometer Test] [POC] [facility] 04/24/18 15:46 Accucheck [POC Glucometer Test] [POC] [facility] 04/25/18 15:46 Accucheck [POC Glucometer Test] [POC] [facility] 04/26/18 15:46 Accucheck [POC Glucometer Test] [POC] [facility] 04/27/18 15:46 Accucheck [POC Glucometer Test] [POC] [facility] 04/28/18 15:46 Accucheck [POC Glucometer Test] [POC] [facility] 04/29/18 15:46 Accucheck [POC Glucometer Test] [POC] [facility] 04/30/18 15:46 Accucheck [POC Glucometer Test] [POC] [facility] 05/01/18 15:46 Accucheck [POC Glucometer Test] [POC] [facility] 05/02/18 15:46 Accucheck [POC Glucometer Test] [POC] [facility] 05/03/18 15:46 Accucheck [POC Glucometer Test] [POC] [facility] 05/04/18 15:46 Accucheck [POC Glucometer Test] [POC] [facility] 05/05/18 15:46 Accucheck [POC Glucometer Test] [POC] [facility] 05/06/18 15:46 Accucheck [POC Glucometer Test] [POC] [facility] 05/07/18 15:46 Accucheck [POC Glucometer Test] [POC] [facility] 05/08/18 15:46 Accucheck [POC Glucometer Test] [POC] [facility] 05/09/18 15:46 Accucheck [POC Glucometer Test] [POC] [facility] 05/10/18 15:46 Accucheck [POC Glucometer Test] [POC] [facility] 05/11/18 15:46 Accucheck [POC Glucometer Test] [POC] [facility] 05/12/18 15:46 Accucheck [POC Glucometer Test] [POC] [facility] 05/13/18 15:46 Accucheck [POC Glucometer Test] [POC] [facility] 05/14/18 15:46 Accucheck [POC Glucometer Test] [POC] [facility] 05/15/18 15:46 Accucheck [POC Glucometer Test] [POC] [facility] 05/16/18 15:46 Accucheck [POC Glucometer Test] [POC] [facility] 05/17/18 15:46 Accucheck [POC Glucometer Test] [POC] [facility] 05/18/18 15:46 Accucheck [POC Glucometer Test] [POC] [facility] 05/19/18 15:46 Accucheck [POC Glucometer Test] [POC] [facility] 05/20/18 15:46 Accucheck [POC Glucometer Test] [POC] [facility] 05/21/18 15:46 Accucheck [POC Glucometer Test] [POC] [facility] 05/22/18 15:46 Accucheck [POC Glucometer Test] [POC] [facility] 05/23/18 15:46 Accucheck [POC Glucometer Test] [POC] [facility] 05/24/18 15:46 Accucheck [POC Glucometer Test] [POC] [facility] 05/25/18 15:46 Accucheck [POC Glucometer Test] [POC] [facility] 05/26/18 15:46 Accucheck [POC Glucometer Test] [POC] [facility] 05/27/18 15:46 Accucheck [POC Glucometer Test] [POC] [facility] 05/28/18 15:46 Accucheck [POC Glucometer Test] [POC] [facility] 05/29/18 15:46 Accucheck [POC Glucometer Test] [POC] [facility] 05/30/18 15:46 Accucheck [POC Glucometer Test] [POC] [facility] 05/31/18 15:46 Accucheck [POC Glucometer Test] [POC] [facility] 06/01/18 15:46 Accucheck [POC Glucometer Test] [POC] [facility] 06/02/18 15:46 Accucheck [POC Glucometer Test] [POC] [facility] 06/03/18 15:46 Accucheck [POC Glucometer Test] [POC] [facility] 06/04/18 15:46 Accucheck [POC Glucometer Test] [POC] [facility] 06/05/18 15:46 Accucheck [POC Glucometer Test] [POC] [facility] 06/06/18 15:46 Accucheck [POC Glucometer Test] [POC] [facility] 06/07/18 15:46 Accucheck [POC Glucometer Test] [POC] [facility] 06/08/18 15:46 Accucheck [POC Glucometer Test] [POC] [facility] 06/09/18 15:46 Accucheck [POC Glucometer Test] [POC] [facility] 06/10/18 15:46 Accucheck [POC Glucometer Test] [POC] [facility] 06/11/18 15:46 Accucheck [POC Glucometer Test] [POC] [facility] 06/12/18 15:46 Accucheck [POC Glucometer Test] [POC] [facility] 06/13/18 15:46 Accucheck [POC Glucometer Test] [POC] [facility] 06/14/18 15:46 Accucheck [POC Glucometer Test] [POC] [facility] 06/15/18 15:46 Accucheck [POC Glucometer Test] [POC] [facility] 06/16/18 15:46 Accucheck [POC Glucometer Test] [POC] [facility] 06/17/18 15:46 Accucheck [POC Glucometer Test] [POC] [facility] 06/18/18 15:46 Accucheck [POC Glucometer Test] [POC] [facility] 06/19/18 15:46 Accucheck [POC Glucometer Test] [POC] [facility] 06/20/18 15:46 Accucheck [POC Glucometer Test] [POC] [facility] 06/21/18 15:46 Accucheck [POC Glucometer Test] [POC] [facility] 06/22/18 15:46 Accucheck [POC Glucometer Test] [POC] [facility] 06/23/18 15:46 Accucheck [POC Glucometer Test] [POC] [facility] 06/24/18 15:46 Accucheck [POC Glucometer Test] [POC] [facility] 06/25/18 15:46 Accucheck [POC Glucometer Test] [POC] [facility] 06/26/18 15:46 Accucheck [POC Glucometer Test] [POC] [facility] 06/27/18 15:46 Accucheck [POC Glucometer Test] [POC] [facility] 06/28/18 15:46 Accucheck [POC Glucometer Test] [POC] [facility] 06/29/18 15:46 Accucheck [POC Glucometer Test] [POC] [facility] 06/30/18 15:46 Accucheck [POC Glucometer Test] [POC] [facility] 07/01/18 15:46 Accucheck [POC Glucometer Test] [POC] [facility] 07/02/18 15:46 Accucheck [POC Glucometer Test] [POC] [facility] Date of Encounter: 03/28/18 Time of Encounter: 11:04 - Discharge Diagnosis (1) Electrolyte imbalance Priority: Secondary Status: Resolved (2) Post op infection Priority: Primary Status: Acute Qualifiers: Encounter type: initial encounter Qualified Code(s): T81.4XXA - Infection following a procedure, initial encounter (3) RUQ abdominal pain Priority: Secondary Status: Acute (4) Diabetes mellitus Priority: Secondary Status: Chronic Qualifiers: Diabetes mellitus type: type 2 Diabetes mellitus watcher [employer] insulin use: without watcher [employer] goods use Diabetes mellitus complication status: with unspecified complications Qualified Code(s): E11.8 - Type 2 diabetes mellitus with unspecified complications (5) Hypertension Priority: Secondary Status: Acute Qualifiers: Hypertension type: essential hypertension Qualified Code(s): I10 - Essential (primary) hypertension (6) ASHD (arteriosclerotic heart disease) Priority: Secondary Status: Chronic (7) Mild protein-calorie malnutrition Priority: Secondary Status: Acute Comments: Secondary to post-operative infection Resume regular diet We believe this will resole with resolving post-operative infection General Surgery Exam Initial Vital Signs Temp Pulse Resp BP Pulse Ox 99.8 F H 105 16 134/79 97 03/26/18 10:56 03/26/18 10:56 03/26/18 10:56 03/26/18 10:56 03/26/18 10:56 - General physical appearance well developed, well nourished, no distress - Neck no masses, no bruits, trachea midline - Respiratory normal expansion, normal respiratory effort, clear to auscultation - Cardiovascular Cardiovascular exam: Present: RRR, no murmurs/rubs/gallops - Abdomen Abdomen general surgery: Present: bowel sounds present, soft, non tender. Absent: tender - Incision Incision: Present: draining (SELMA drain serosanguinous) - Integumentary Integumentary general surgery: Present: warm and dry, no abnormal pigmentation - Musculoskeletal Present: normal posture - Psychiatric Psychiatric general surgery: Present: oriented to person, oriented to place, oriented to time - Hospital Course Hospital course: Mr. Watson is a 47 year old male who presented to the ED on 03/26/18 after leaving [place] ED for gallbladder abscess. IR placed drain into the abscess cavity on 03/26/18. His hospital stay has been non-complicated. He will be discharged today with oral antibiotics and will be following up with Surgery next monday for SELMA drain removal. - Time Spent with Patient Total time spent providing and/or coordinating discharge services: - Discharge Medications Prescriptions: OxyCODONE/APAP 5/325 [Percocet 5/325 MG] 1 each PO Q8HR PRN 5 Days #15 tablet PRN Reason: Pain Amoxicillin/Clavulanate [Augmentin] 875 mg PO BIDWM #28 tablet Home Medications: GlipiZIDE [Glipizide Xl] 5 mg PO DAILY 09/26/15 [History] Pantoprazole Sodium [Protonix] 20 mg PO DAILY 09/26/15 [History] Metformin HCl [Glucophage] 1,000 mg PO BIDWM 02/27/18 [History] Aspirin [Adult Aspirin Regimen] 81 mg PO DAILY 03/26/18 [History] Pravastatin Sodium [Pravachol] 40 mg PO DAILY 03/26/18 [History] Amoxicillin/Clavulanate [Augmentin] 875 mg PO BIDWM #28 tablet 03/28/18 [Rx] OxyCODONE/APAP 5/325 [Percocet 5/325 MG] 1 each PO Q8HR PRN 5 Days #15 tablet [Rx] Allergies/Adverse Reactions: 3 Allergy/AdvReac Type Severity Reaction Status Date / Time No Known Allergies Allergy Verified 03/26/18 06:02 Date of admission: 03/26/18 11:50 Primary care physician: Brittany Roberts CNP Consults: 03/26/18 13:25 Consult to Nutrition [CONS] Routine Comment: Consulting Provider: NUTRITION Reason for Dietary Consult: MST Score Consult to Senior Erp Consultant [CONS] Routine Reason for SW Consult: discharge planning Discharging clinician: Oracio Desai Anticipated date of discharge: 03/28/18 Labs on day of discharge: Labs from last 24 hours 03/28/18 03/28/18 03/27/18 06:18 06:18 21:37 WBC 17.0 H RBC 4.42 Hgb 13.1 Hct 38.2 MCV 86.4 MCH 29.6 MCHC 34.3 RDW 13.2 Plt Count 270 MPV 10.5 Immature Gran % 0.6 Seg Neutrophils % 79.3 Lymphocytes % 13.7 Monocytes % 4.5 Eosinophils % 1.5 Basophils % 0.4 Neutrophils # 13.5 H Lymphocytes # 2.3 Monocytes # 0.8 Eosinophils # 0.3 Basophils # 0.1 POC Glucose 233 H Total Bilirubin 1.0 Direct Bilirubin 0.3 H Indirect Bilirubin 0.7 AST 13 ALT 18 Alkaline Phosphatase 164 H Serum Total Protein 6.5 Albumin 3.2 L Globulin 3.3 Albumin/Globulin Ratio 1.0 L A. baumannii (PCR) Gisselle albicans (PCR) C. glabrata (PCR) C. krusei (PCR) C. parapsilosis (PCR) C. tropicalis (PCR) Enterobacteriac sp PCR E. cloacae complex PCR Enterococcus sp PCR E. coli (PCR) H. influenzae (PCR) Klebsiella oxytoca PCR Klebsiella pneumoniae List. monocytogenes PCR N. meningitidis (PCR) Proteus species (PCR) Serratia marcescens PCR Staphylococcus sp PCR Staph aureus (PCR) mecA-Methicil Res Gene Streptococcus sp PCR Group A Strep DNA Group B Strep (PCR) Strep pneumoniae (PCR) P. aeruginosa (PCR) Tony/B-Vanco Res Genes KPC (blaKPC) Detect PCR 03/27/18 03/27/18 03/27/18 16:44 11:02 07:34 WBC RBC Hgb Hct MCV MCH MCHC RDW Plt Count MPV Immature Gran % Seg Neutrophils % Lymphocytes % Monocytes % Eosinophils % Basophils % Neutrophils # Lymphocytes # Monocytes # Eosinophils # Basophils # POC Glucose 226 H 200 H 188 H Total Bilirubin Direct Bilirubin Indirect Bilirubin AST ALT Alkaline Phosphatase Serum Total Protein Albumin Globulin Albumin/Globulin Ratio A. baumannii (PCR) Gisselle albicans (PCR) C. glabrata (PCR) C. krusei (PCR) C. parapsilosis (PCR) C. tropicalis (PCR) Enterobacteriac sp PCR E. cloacae complex PCR Enterococcus sp PCR E. coli (PCR) H. influenzae (PCR) Klebsiella oxytoca PCR Klebsiella pneumoniae List. monocytogenes PCR N. meningitidis (PCR) Proteus species (PCR) Serratia marcescens PCR Staphylococcus sp PCR Staph aureus (PCR) mecA-Methicil Res Gene Streptococcus sp PCR Group A Strep DNA Group B Strep (PCR) Strep pneumoniae (PCR) P. aeruginosa (PCR) Tony/B-Vanco Res Genes KPC (blaKPC) Detect PCR 03/26/18 03/26/18 03/26/18 21:46 19:28 16:06 WBC RBC Hgb Hct MCV MCH MCHC RDW Plt Count MPV Immature Gran % Seg Neutrophils % Lymphocytes % Monocytes % Eosinophils % Basophils % Neutrophils # Lymphocytes # Monocytes # Eosinophils # Basophils # POC Glucose 182 H 104 H Total Bilirubin Direct Bilirubin Indirect Bilirubin AST ALT Alkaline Phosphatase Serum Total Protein Albumin Globulin Albumin/Globulin Ratio A. baumannii (PCR) Not Detected Gisselle albicans (PCR) Not Detected C. glabrata (PCR) Not Detected C. krusei (PCR) Not Detected C. parapsilosis (PCR) Not Detected C. tropicalis (PCR) Not Detected Enterobacteriac sp PCR DETECTED A E. cloacae complex PCR Not Detected Enterococcus sp PCR Not Detected E. coli (PCR) DETECTED A H. influenzae (PCR) Not Detected Klebsiella oxytoca PCR Not Detected Klebsiella pneumoniae Not Detected List. monocytogenes PCR Not Detected N. meningitidis (PCR) Not Detected Proteus species (PCR) Not Detected Serratia marcescens PCR Not Detected Staphylococcus sp PCR Not Detected Staph aureus (PCR) Not Detected mecA-Methicil Res Gene Not Detected Streptococcus sp PCR Not Detected Group A Strep DNA Not Detected Group B Strep (PCR) Not Detected Strep pneumoniae (PCR) Not Detected P. aeruginosa (PCR) Not Detected Tony/B-Vanco Res Genes Not Detected KPC (blaKPC) Detect PCR Not Detected Preliminary micro results at discharge 03/26/18 19:28 Blood Culture - Preliminary Peripheral Venipuncture Gram Negative Nolberto 03/26/18 19:28 Blood Culture - Preliminary Peripheral Venipuncture Gram Negative Nolberto - Patient Status Disposition: Home, Self-Care Condition: Good Functional capacity at discharge: independent ambulation Overall status at discharge: patient is progressing back to baseline - Discharge Instructions Follow Up With: Brittany Roberts, [employer] [Primary Care Provider] - Additional Instructions: 1. No pushing, pulling, or lifting greater than 15 lbs for 2-4 weeks (depending upon procedure). 2. You may shower beginning today, but no tub baths, soaking, or swimming for 2 weeks. 3. You may resume driving when you are off narcotics and are safe to react in a car. 4. Take ibuprofen every 8 hours for discomfort. If this does not relieve discomfort, you may take the as needed Percocet. Take narcotics as directed. Do not take more narcotics then directed and do not share your narcotics with any other person. Do not drink alcohol while on narcotics. 5. Take stool softeners (Colace) or a water based laxative (Miralax) while taking narcotics. You may hold for loose stools. 6. Report any fevers greater than 100.5F, increase abdominal discomfort, drainage that looks like pus, increased redness or pain at the surgical site, or any vomiting. 7. Report any pain in the calves, shortness of breath, or rapid heartbeat. 8. Follow-up in the office as directed. 9. If you were prescribed antibiotics, do not stop them without talking to your provider. 10. Do not let SELMA drain dangle from body, secure to clothing with safety pin. Empty and measure fluid 2-3 times a day and keep a log of the measurements. - Diet and Activity Activity: increase activity as tolerated Diet: advance to your usual diet
== END 2018-03-28 13:20 | disposition home or self-care (01) ==
LOC: 3ANU 10:53 → EMEROOARM 10:53 → 3ANU 12:36
PROVIDERS: ADMIT Surgery; ATTEND Surgery
PROC: IRDRAIN (2018-03-26 12:30)

== ENCOUNTER 2020-12-23 09:34 | Inpatient (IN) ==
[2020-12-23 10:31] LABS: Basophils # 0.1 K/mcL (0.0-0.2); Basophils % 0.9 %; Eosinophils # 0.3 K/mcL (0.0-0.6); Hematocrit 48.7 % (37.5-50.1); Hemoglobin 16.6 g/dL (12.9-16.9); Immature Granulocytes % 0.2 % (0-4); Lymphocytes # 3.1 K/mcL (0.6-4.6); Lymphocytes % 33.4 %; Mean Corpuscular HGB Conc 34.1 g/dL (31.6-35.5); Mean Corpuscular Volume 90.9 fL (83.0-100.0); Mean Platelet Volume 10.2 fL (9.4-12.4); Monocytes # 0.7 K/mcL (0.0-1.3); Monocytes % 7.6 %; Neutrophils # 5.1 K/mcL (1.6-8.9); Platelet Count 241 K/mcL (140-400); Red Blood Count 5.36 M/mcL (4.19-5.50); Red Cell Distribution Width 13.3 % (11.5-14.5); Segmented Neutrophils % 54.9 %; White Blood Count 9.3 K/mcL (4.3-11.1)
[2020-12-23 10:54] LABS: BUN/Creatinine Ratio 16 (6-26); Blood Urea Nitrogen 10 mg/dL (6-20); Calcium 9.6 mg/dL (8.6-10.3); Carbon Dioxide 27 mEq/L (23-29); Chloride 102 mEq/L (98-107); Glucose 147 mg/dL (70-105); Osmolality,Calculated 286 (280-300); Potassium 3.6 mEq/L (3.5-5.1); Sodium 137 mEq/L (136-145); eGFR For African Americans > 60 (> 60); eGFR For Non-African Americans > 60 (> 60)
[2020-12-23] MEDS ORDERED: Piperacillin/Tazobactam 4.5 GM in 0.9 % Sodium Chloride Mini Bag 100 ML IVPB ONE (11:43)
[2020-12-23] MEDS ORDERED: Piperacillin/Tazobactam 3.375 GM in 0.9 % Sodium Chloride Mini Bag 100 ML IVPB ONE (12:07)
[2020-12-23] MEDS ORDERED: Vancomycin 1,750 MG/517.5 ML IV.SOLN IVPB ONE (12:11)
[2020-12-23] MEDS ORDERED: Naloxone 0.4 MG/ML INJ IVP PRN (14:04)
[2020-12-23] MEDS ORDERED: Ondansetron ODT 4 MG TAB.RAPDIS SL PRN (14:04)
[2020-12-23] MEDS ORDERED: Acetaminophen 325 MG TABLET PO PRN (14:04)
[2020-12-23] MEDS ORDERED: D5% in Water 1,000 ML IVC PRN (14:04)
[2020-12-23] MEDS ORDERED: Mag Hydrox/Al Hydrox/Simeth 30 ML UDC PO PRN (14:04)
[2020-12-23] MEDS ORDERED: Melatonin 3 MG TABLET PO PRN (14:04)
[2020-12-23] MEDS ORDERED: *HR* Dextrose 50 % in Water (Vial) 50 ML VIAL IVP PRN (14:04)
[2020-12-23] MEDS ORDERED: Dextrose Gel 15 GM/37.5 ML TUBE PO PRN ×2 (14:04)
[2020-12-23] MEDS ORDERED: *HR* OxyCODONE Immed Rel 5 MG TABLET PO PRN (14:04)
[2020-12-23] MEDS ORDERED: MOM Conc 10 ML UD.LIQ PO PRN (14:04)
[2020-12-23 14:52] LABS: Estimated Average Glucose 163 mg/dl; Hemoglobin A1C 7.3 %
[2020-12-23] MEDS ORDERED: Vancomycin 1,750 MG in 0.9 % Sodium Chloride 250 ML IVPB SCH (15:00)
[2020-12-23] MEDS: Insulin LISPRO 300 UNITS/3 ML VIAL SUBQ SCH (18:28)
[2020-12-23] MEDS: Piperacillin/Tazobactam 3.375 GM in 0.9 % Sodium Chloride Mini Bag 100 ML IVPB SCH (20:05)
[2020-12-23] MEDS ORDERED: Insulin LISPRO 300 UNITS/3 ML VIAL SUBQ SCH (21:00)
[2020-12-23] MEDS: *HR* Heparin 5,000 UNIT/ML VIAL SQ SCH (22:04)
[2020-12-24 01:41] LABS: Hematocrit 45.3 % (37.5-50.1); Hemoglobin 15.6 g/dL (12.9-16.9); Mean Corpuscular HGB Conc 34.4 g/dL (31.6-35.5); Mean Corpuscular Hemoglobin 31.1 pg (28.0-33.3); Mean Corpuscular Volume 90.2 fL (83.0-100.0); Platelet Count 225 K/mcL (140-400); Red Blood Count 5.02 M/mcL (4.19-5.50); Red Cell Distribution Width 13.2 % (11.5-14.5); White Blood Count 11.4 K/mcL (4.3-11.1)
[2020-12-24] MEDS ORDERED: Vancomycin 1,750 MG/517.5 ML IV.SOLN IVPB SCH (02:00)
[2020-12-24 02:02] LABS: BUN/Creatinine Ratio 14 (6-26); Blood Urea Nitrogen 9 mg/dL (6-20); Carbon Dioxide 25 mEq/L (23-29); Chloride 104 mEq/L (98-107); Glucose 120 mg/dL (70-105); Osmolality,Calculated 286 (280-300); Potassium 3.1 mEq/L (3.5-5.1); Sodium 138 mEq/L (136-145); eGFR For African Americans > 60 (> 60); eGFR For Non-African Americans > 60 (> 60)
[2020-12-24] MEDS: *HR* Heparin 5,000 UNIT/ML VIAL SQ SCH ×3 (04:38→22:26)
[2020-12-24] MEDS: Piperacillin/Tazobactam 3.375 GM in 0.9 % Sodium Chloride Mini Bag 100 ML IVPB SCH (04:38)
[2020-12-24] MEDS: Insulin LISPRO 300 UNITS/3 ML VIAL SUBQ SCH ×4 (08:30→21:37)
[2020-12-24 11:10] LABS: C-Reactive Protein < 5 mg/L (Less than 10)
[2020-12-24] MEDS ORDERED: amLODIPine 5 MG TABLET PO SCH (15:26)
[2020-12-24] MEDS ORDERED: Bupivacaine-MPF 0.25% 10 ML VIAL ONE (17:53)
[2020-12-24] MEDS ORDERED: *HR* Propofol 200 MG/20 ML VIAL IVP ONE (18:18)
[2020-12-24] MEDS ORDERED: *HR* FentaNYL (PF) 100 MCG/2 ML VIAL ONE (18:18)
[2020-12-24] MEDS ORDERED: *HR* Midazolam HCl 2 MG/2 ML VIAL ONE (18:38)
[2020-12-24] MEDS ORDERED: Mag Hydrox/Al Hydrox/Simeth 30 ML UDC PO PRN (19:44)
[2020-12-24] MEDS ORDERED: *HR* OxyCODONE Immed Rel 5 MG TABLET PO PRN (19:44)
[2020-12-24] MEDS ORDERED: Acetaminophen 325 MG TABLET PO PRN (19:44)
[2020-12-24] MEDS ORDERED: Naloxone 0.4 MG/ML INJ IVP PRN (19:44)
[2020-12-24] MEDS ORDERED: *HR* Dextrose 50 % in Water (Vial) 50 ML VIAL IVP PRN (19:44)
[2020-12-24] MEDS ORDERED: MOM Conc 10 ML UD.LIQ PO PRN (19:44)
[2020-12-24] MEDS ORDERED: D5% in Water 1,000 ML IVC PRN (19:44)
[2020-12-24] MEDS ORDERED: Ondansetron ODT 4 MG TAB.RAPDIS SL PRN (19:44)
[2020-12-24] MEDS ORDERED: Melatonin 3 MG TABLET PO PRN (19:44)
[2020-12-24] MEDS ORDERED: Dextrose Gel 15 GM/37.5 ML TUBE PO PRN ×2 (19:44)
[2020-12-25 01:25] LABS: Basophils # 0.1 K/mcL (0.0-0.2); Basophils % 0.6 %; Eosinophils # 0.2 K/mcL (0.0-0.6); Eosinophils % 1.5 %; Hematocrit 48.3 % (37.5-50.1); Hemoglobin 16.7 g/dL (12.9-16.9); Immature Granulocytes % 0.5 % (0-4); Lymphocytes # 2.6 K/mcL (0.6-4.6); Lymphocytes % 19.6 %; Mean Corpuscular HGB Conc 34.6 g/dL (31.6-35.5); Mean Corpuscular Hemoglobin 31.2 pg (28.0-33.3); Mean Corpuscular Volume 90.3 fL (83.0-100.0); Mean Platelet Volume 10.1 fL (9.4-12.4); Monocytes # 0.8 K/mcL (0.0-1.3); Neutrophils # 9.5 K/mcL (1.6-8.9); Platelet Count 238 K/mcL (140-400); Red Blood Count 5.35 M/mcL (4.19-5.50); Red Cell Distribution Width 13.2 % (11.5-14.5); Segmented Neutrophils % 71.8 %; White Blood Count 13.2 K/mcL (4.3-11.1)
[2020-12-25 01:44] LABS: BUN/Creatinine Ratio 19 (6-26); Blood Urea Nitrogen 11 mg/dL (6-20); Carbon Dioxide 25 mEq/L (23-29); Chloride 103 mEq/L (98-107); Glucose 243 mg/dL (70-105); Magnesium 1.5 mg/dL (1.6-2.6); Osmolality,Calculated 289 (280-300); Potassium 2.9 mEq/L (3.5-5.1); Sodium 136 mEq/L (136-145); eGFR For African Americans > 60 (> 60); eGFR For Non-African Americans > 60 (> 60)
[2020-12-25] MEDS ORDERED: Potassium Chloride 40 MEQ, Lidocaine 1% 2 ML in 0.9 % Sodium Chloride 500 ML IVPB ONE ×2 (03:49→10:30)
[2020-12-25] MEDS: *HR* Heparin 5,000 UNIT/ML VIAL SQ SCH ×3 (06:13→21:25)
[2020-12-25] MEDS ORDERED: amLODIPine 5 MG TABLET PO SCH (09:00)
[2020-12-25] MEDS ORDERED: Aspirin Enteric Coated 81 MG Tablet PO SCH ×2 (09:00)
[2020-12-25] MEDS ORDERED: Nicotine 14 MG PATCH.TD24 TD SCH ×2 (09:00)
[2020-12-25] MEDS: Insulin LISPRO 300 UNITS/3 ML VIAL SUBQ SCH ×4 (09:27→21:24)
[2020-12-25] MEDS ORDERED: Vancomycin 1,750 MG in 0.9 % Sodium Chloride 250 ML IVPB SCH (16:00)
[2020-12-25] MEDS: Piperacillin/Tazobactam 3.375 GM in 0.9 % Sodium Chloride Mini Bag 100 ML IVPB SCH (17:56)
[2020-12-25] MEDS: Vancomycin 1,750 MG/517.5 ML IV.SOLN IVPB SCH (18:10)
[2020-12-26] MEDS: Piperacillin/Tazobactam 3.375 GM in 0.9 % Sodium Chloride Mini Bag 100 ML IVPB SCH (01:34)
[2020-12-26] MEDS: Vancomycin 1,750 MG/517.5 ML IV.SOLN IVPB SCH (04:43)
[2020-12-26 05:38] VITALS: BP 157/81
[2020-12-26] MEDS: *HR* Heparin 5,000 UNIT/ML VIAL SQ SCH (06:09)
[2020-12-26 06:49] LABS: Basophils # 0.1 K/mcL (0.0-0.2); Basophils % 0.9 %; Eosinophils # 0.3 K/mcL (0.0-0.6); Eosinophils % 3.6 %; Hematocrit 46.6 % (37.5-50.1); Hemoglobin 16.2 g/dL (12.9-16.9); Immature Granulocytes % 0.2 % (0-4); Lymphocytes # 2.2 K/mcL (0.6-4.6); Lymphocytes % 25.5 %; Mean Corpuscular HGB Conc 34.8 g/dL (31.6-35.5); Mean Corpuscular Hemoglobin 31.8 pg (28.0-33.3); Mean Corpuscular Volume 91.4 fL (83.0-100.0); Mean Platelet Volume 10.4 fL (9.4-12.4); Monocytes # 0.7 K/mcL (0.0-1.3); Monocytes % 8.5 %; Neutrophils # 5.3 K/mcL (1.6-8.9); Platelet Count 218 K/mcL (140-400); Red Cell Distribution Width 13.4 % (11.5-14.5); Segmented Neutrophils % 61.3 %; White Blood Count 8.7 K/mcL (4.3-11.1)
[2020-12-26 07:08] LABS: BUN/Creatinine Ratio 17 (6-26); Blood Urea Nitrogen 11 mg/dL (6-20); Calcium 8.7 mg/dL (8.6-10.3); Carbon Dioxide 23 mEq/L (23-29); Chloride 106 mEq/L (98-107); Glucose 212 mg/dL (70-105); Magnesium 1.7 mg/dL (1.6-2.6); Osmolality,Calculated 286 (280-300); Potassium 4.1 mEq/L (3.5-5.1); Sodium 135 mEq/L (136-145); eGFR For African Americans > 60 (> 60); eGFR For Non-African Americans > 60 (> 60)
[2020-12-26] MEDS ORDERED: Magnesium Oxide 400 MG TABLET PO SCH (09:00)
== END 2020-12-26 10:09 | disposition home or self-care (01) | DRG 314 ==
LOC: EMEROOARM 09:34 → 3NENU 09:34 → SUATTDRO 14:12 → 3NENU 15:33
PROVIDERS: ADMIT Internal Medicine; ATTEND Pharmacist